=== PATIENT | female | born 1965 | race Caucasian/White ===

== ENCOUNTER 2018-05-18 08:06 | Day surgery (SDC) | payer BC ==
[2018-05-16 16:22] VITALS: BMI 37.8
--- NOTE | 2018-05-17 17:06 | P.HPOB ---
History of Present Illness H&P Date: 05/17/18 Chief Complaint: Postmenopausal bleeding Patient is a 52-year-old female who has postmenopausal bleeding. The bleeding has been irregular but as it is postmenopausal we'll plan D&C with hysteroscopy to rule out hyperplasia or dysplasia. Risks/benefits/alternatives were reviewed with the patient in detail all questions were answered for her prior to proceeding to the operating room. No other gross findings or abnormalities. Bleeding has been off-and-on for the last 6-9 months. She previously stopped having menses. Past Medical History Past Medical History: CVA/TIA, Hyperlipidemia, Hypertension, Neurologic Disorder Additional Past Medical History / Comment(s): VERY SLIGHT TIA. CHRONIC SINUSITIS. BLEEDING AFTER EXERCISE. MIGRAINES History of Any Multi-Drug Resistant Organisms: MRSA Date of last positivie culture/infection: 01/2018 MDRO Source:: UNDER NOSE ON FACE Past Surgical History: Cholecystectomy, Orthopedic Surgery, Tonsillectomy, Tubal Ligation Additional Past Surgical History / Comment(s): RT WRIST AND ELBOW SX. COLONOSCOPY/EGD Past Anesthesia/Blood Transfusion Reactions: Motion Sickness, Postoperative Nausea & Vomiting (PONV) Smoking Status: Never smoker - Past Family History Mother Family Medical History: No Reported History Medications and Allergies Home Medications Medication Instructions Recorded Confirmed Type Cholecalciferol (Vitamin D3) 2,000 unit PO DAILY 05/16/18 05/16/18 History [Vitamin D3] L.acidoph,Paracasei, B.lactis 1 each PO DAILY 05/16/18 05/16/18 History [Probiotic] Magnesium Chloride [Slow Mag] 64 mg PO DAILY 05/16/18 05/16/18 History Metoprolol Succinate [Toprol Xl] 50 mg PO HS 05/16/18 05/16/18 History Simvastatin [Zocor] 20 mg PO HS 05/16/18 05/16/18 History Vitamin B Complex 1 each PO DAILY 05/16/18 05/16/18 History amLODIPine [Norvasc] 5 mg PO DAILY 05/16/18 05/16/18 History Allergies Allergy/AdvReac Type Severity Reaction Status Date / Time cephalexin [From Keflex] AdvReac Diarrhea Verified 05/16/18 16:16 codeine AdvReac Nausea & Verified 05/16/18 16:16 Vomiting hydromorphone [From Dilaudid] AdvReac Nausea Verified 05/16/18 16:16 Opioids - Morphine Analogues AdvReac SEVERE Verified 05/16/18 16:16 BOWEL IMPACTION prochlorperazine AdvReac Nausea & Verified 05/16/18 16:16 [From Compazine] Vomiting raspberry AdvReac COLD SORES Verified 05/16/18 16:16 strawberry AdvReac COLD SORES Verified 05/16/18 16:16 sumatriptan [From Imitrex] AdvReac CAUSED Verified 05/16/18 16:16 VERY MINOR TIA tramadol AdvReac Nausea Verified 05/16/18 16:16 Exam Osteopathic Statement: *. No significant issues noted on an osteopathic structural exam other than those noted in the History and Physical/Consult. - OBG Physical Exam Breast: both: normal (no masses) Abdomen: bowel sounds normal, no diffuse tenderness, no bruit present, no guarding noted, no hepatomegaly, no splenomegaly, no mass Vulva: both: normal Vagina: normal moisture, no discharge Cervix: no lesion, no discharge Uterus: normal size, normal contour Adnexa: both: normal Anus/Rectum: normal perianal skin, no rectal mass, no hemorrhoids, heme negative
[~2018-05-18 08:06] MED LIST: DEXAMETHASONE SOD PHOSPHATE 10 MG/ML 1 ML VIAL IV ONE; HYDROmorphone 1 MG/ML 1 ML SYRINGE IVP PRN; LACTATED RINGERS 1,000 ML IV SCH; LIDOCAINE 1% 20 ML VIAL (10MG/ML) FOR IV START INTRADERMA PRN; MIDAZOLAM 2 MG/2 ML VIAL IV PRN; ONDANSETRON 4 MG/2 ML VIAL IVP ONE; SCOPOLAMINE 1.5MG/72HR PATCH TRANSDERM ONE
[2018-05-18] MEDS ORDERED: PROPOFOL 10 MG/ML 20 ML VIAL IV ONE (10:01)
[2018-05-18] MEDS ORDERED: KETOROLAC 30 MG/ML 1 ML VIAL ONE (10:01)
[2018-05-18] MEDS ORDERED: MIDAZOLAM 2 MG/2 ML VIAL ONE (10:01)
[2018-05-18] MEDS ORDERED: LIDOCAINE 1% INJ 10MG/ML (20 ML MDV) ONE (10:01)
--- NOTE | 2018-05-18 10:23 | P.OP ---
Date of Procedure: 05/18/18 Preoperative Diagnosis: Postmenopausal bleeding Postoperative Diagnosis: Same Procedure(s) Performed: Limited visualization due to the fact that she was bleeding today Anesthesia: DARCY LAGUNA Surgeon: Bruce Marina Estimated Blood Loss (ml): 3 Pathology: other (Uterine curettings) Condition: stable Disposition: same day Operative Findings: Tissue pathology pending Description of Procedure: Patient was taken to the operating suite where a general anesthetic was found be adequate. She was prepped and draped in the normal sterile fashion and placed in dorsal lithotomy position. Initially a speculum was inserted into the vagina and into lip cervix was identified and grasped with Allis clamp. Cervix was then dilated and camera was inserted. Minimal visualization was able to be obtained due to the fact that she wouldn't leave today. Therefore camera was removed and sharp curettings of the endometrium were obtained. Minimal tissue was actually obtained. Will await final tissue pathology. Once this was completed all instruments were removed. Sponge, lap, needle counts were all correct 2. Patient was then taken to the recovery room in stable and satisfactory condition. Plan - Discharge Summary New Discharge Prescriptions: No Action Magnesium Chloride [Slow Mag] 64 mg PO DAILY amLODIPine [Norvasc] 5 mg PO DAILY Vitamin B Complex 1 each PO DAILY Simvastatin [Zocor] 20 mg PO HS Metoprolol Succinate [Toprol Xl] 50 mg PO HS L.acidoph,Paracasei, B.lactis [Probiotic] 1 each PO DAILY Cholecalciferol (Vitamin D3) [Vitamin D3] 2,000 unit PO DAILY Discharge Medication List Cholecalciferol (Vitamin D3) [Vitamin D3] 2,000 unit PO DAILY 05/16/18 [History] L.acidoph,Paracasei, B.lactis [Probiotic] 1 each PO DAILY 05/16/18 [History] Magnesium Chloride [Slow Mag] 64 mg PO DAILY 05/16/18 [History] Metoprolol Succinate [Toprol Xl] 50 mg PO HS 05/16/18 [History] Simvastatin [Zocor] 20 mg PO HS 05/16/18 [History] Vitamin B Complex 1 each PO DAILY 05/16/18 [History] amLODIPine [Norvasc] 5 mg PO DAILY 05/16/18 [History] Follow up Appointment(s)/Referral(s): Bruce Marina DO [Doctor of Osteopathic Medicine] - 1 Week Activity/Diet/Wound Care/Special Instructions: pelvic rest this week. no heavy lifting today and no driving today. call for any high temps, heavy bleeding or severe pain
[2018-05-18] MEDS ORDERED: ONDANSETRON 4 MG/2 ML VIAL IVP ONE (10:39)
[2018-05-18 10:53] VITALS: TEMP 98.4
[2018-05-18] MEDS ORDERED: ACETAMINOPHEN IV (For NPO) 1,000 MG/100 ML VIAL IVPB ONE (10:55)
[2018-05-18 11:37] VITALS: RESP 16
[2018-05-18 11:46] VITALS: BP 145/89; PULSE 69
== END 2018-05-18 12:15 | disposition home or self-care (01) ==
LOC: OR 08:06
PROVIDERS: ATTEND Obstetrics & Gynecology
DX: N84.0 Polyp of corpus uteri (principal); N95.0 Postmenopausal bleeding; Z86.73 Personal history of transient ischemic attack (TIA), and cerebral infarction without residual deficits; E78.5 Hyperlipidemia, unspecified; I10 Essential (primary) hypertension; G43.909 Migraine, unspecified, not intractable, without status migrainosus; J32.9 Chronic sinusitis, unspecified; K21.9 Gastro-esophageal reflux disease without esophagitis; Z86.14 Personal history of Methicillin resistant Staphylococcus aureus infection; Z79.899 Other long term (current) drug therapy; Z88.5 Allergy status to narcotic agent; Z88.1 Allergy status to other antibiotic agents; Z88.8 Allergy status to other drugs, medicaments and biological substances; Z91.018 Allergy to other foods; Z98.51 Tubal ligation status
CPT/HCPCS: 81025; 88305; 58558; J2250; J1100; J2405; J2001; J1885; J0131; J2704

== ENCOUNTER → 2023-09-19 | Outpatient (CLI) | payer BC ==
--- NOTE | 2023-09-19 13:06 | XR ---
EXAMINATION TYPE: XR chest 2V DATE OF EXAM: 09/19/2023 COMPARISON: None HISTORY: 57-year-old female preoperative evaluation, Z01.818. TECHNIQUE: Frontal and lateral views FINDINGS: The cardiomediastinal silhouette, aorta, and pulmonary vasculature are within normal limits. Lungs an d pleural spaces are clear. IMPRESSION: No acute cardiopulmonary process.
[2023-09-19 15:49] LABS: Basophils # (A) 0.06 X 10*3/uL (0.00-0.10); Basophils % (A) 0.5 %; Eosinophils # (A) 0.62 X 10*3/uL (0.04-0.35); Eosinophils % (A) 5.1 %; HCT 44.6 % (37.2-46.3); HGB 15.4 g/dL (12.0-15.0); Lymphocytes # (A) 2.39 X 10*3/uL (0.90-5.00); Lymphocytes % (A) 19.5 %; MCH 33.6 pg (27.0-32.0); MCHC 34.5 g/dL (32.0-37.0); MCV 97.4 FL (80.0-97.0); Mean Platelet Volume 10.3 FL (9.5-12.2); Monocytes # (A) 0.89 X 10*3/uL (0.20-1.00); Monocytes % (A) 7.3 %; NRBC Per 100 WBC 0 X 10*3/uL (0.00-0.01); Neutrophils # (A) 8.19 X 10*3/uL (1.80-7.70); Neutrophils % (A) 66.7 %; Platelet Count 255 X 10*3/uL (140-440); RBC 4.58 X 10*6/uL (4.10-5.20); RDW 12.6 % (11.5-14.5); WBC 12.26 X 10*3/uL (4.50-10.00)
[2023-09-19 16:05] LABS: INR 0.93 sec (0.93-1.11); Prothrombin Time 10.1 sec (9.9-11.9)
[2023-09-19 16:23] LABS: ALT 31 U/L (8-44); AST 29 U/L (13-35); Albumin 4.3 g/dL (3.8-4.9); Albumin/Globulin Ratio 1.95 Ratio (1.60-3.17); Alkaline Phosphatase 76 U/L (41-126); Blood Urea Nitrogen 26.5 mg/dL (9.0-27.0); Calcium 9.8 mg/dL (8.7-10.3); Carbon Dioxide 19.6 mmol/L (21.6-31.8); Chloride 100 mmol/L (96-109); Globulin 2.2 g/dL (1.6-3.3); Glucose 98 mg/dL (70-110); Potassium 4.4 mmol/L (3.5-5.5); Sodium 136 mmol/L (135-145); Total Bilirubin 0.4 mg/dL (0.3-1.2); Total Protein 6.5 g/dL (6.2-8.2)
== END | disposition home or self-care (01) ==
LOC: LABPAT 11:49
PROVIDERS: ATTEND Orthopaedic Surgery
DX: Z01.812 Encounter for preprocedural laboratory examination (principal); I10 Essential (primary) hypertension; E11.65 Type 2 diabetes mellitus with hyperglycemia; D51.9 Vitamin B12 deficiency anemia, unspecified; E55.9 Vitamin D deficiency, unspecified; Z22.322 Carrier or suspected carrier of Methicillin resistant Staphylococcus aureus
CPT/HCPCS: 71046; 80053; 82306; 82607; 83036; 84443; 85025; 85610; 86850; 86900; 86901; 87070

== ENCOUNTER 2023-09-27 11:43 | Day surgery (SDC) | payer BC ==
[2023-09-22 14:24] VITALS: BMI 36.4
--- NOTE | 2023-09-25 18:47 | P.HPOR ---
History of Present Illness H&P Date: 09/14/23 .D:Date: 09/14/23 : 10:47am .T:Title: [facility]OVANNA [facility] HISTORY AND PHYSICAL Age: 57 year Height: 5'6" Weight: 220 lbs BMI: 35.51 kg/m2 Occupation: Factory, off work currently VAS: 4 CC: Re-check on low back pain HISTORY: Ms. Rivera presents to the office today, 09/14/23, for re-evaluation of low back pain. She has been working with Sharon Gil, Spine POULTRY PROCESS WORKER for a while now with conservative care including medications, PT, HEP, Supplementation and OTC treatments. She continues to have significant low back and leg pain that does not seem to be getting better with any of these treatments at this time. Patient denies any f/c/sob/cp, perineal numbness or tingling, bowel or bladder incontinence/retention. Patient is ambulatoryindependently today. The patients' past social, medical, family, surgical history, as well as review of systems, have been reviewed. Please refer to the Neurosurgery History and Physical form that has been scanned into our electronic medical record system. 16 points review of systems completed and as stated in HPI, all other systems reviewed are negative. PAST TREATMENTS: PT: No Did it help? n/a Home Exercise: Yes Medications: Completing a steroid naomi, Gabapentin, and Aleve Alternative Interventions: Chiropractic: No Massage therapy: Yes R.I.C.E: Yes Brace: No Injections: No MEDICAL HISTORY: Past Medical History: Reviewed, see appropriate section of the chart for details. Past Spine Surgical History: None Social History: Reviewed, see appropriate section of the chart for details. Family History: Reviewed, see appropriate section of the chart for details. Current Medications: Reviewed with pt. See list in chart. P1 IMAGING Study Findings XRAY REviewed with pt today in office. This demonstrates L5-S1 Grade I unstable spondylolisthesis with spondylosis and stenosis. There is severe facet arthrosis at this level as well as moderate at L4-5. There is retrolistheis of L4-5 and L3-4 related to compensatory change due to the listhesis. There are no fractures noted. Pars elongation b/l noted L5-S1. No lesions. CT N/A MRI Images reviewed with pt today. These demonstrate again L5-S1 spondylolisthesis Grade I, unstable which is partially reduced on this supine film. There is disc dessication, bulging and height loss which contribute to the central and b/l foraminal stenosis that is moderate to severe at this level. There is moderate central stenosis L4-5 and L3-4 with retrolisthesis at both of these levels. There are no lesions or fractures noted at this time. PHYSICAL EXAM: General: AOX3, NAD, Well hydrate, Well nourished HEENT: No lumps or masses Extremities: No color changes, no pooling INTEGUMENT: Appearance:Normal color and turgor Surgical Incisions: None Hairy Patches: ABSENT Dorsal Skin Dimples: Normal [employer] spots: ABSENT PALPATION: Midline: NO Paracervical: NO Parathoracic: NO Paralumbar: YES SIJ TESTING: YES TTP: Mild b/l [place] Finger: NO FABER4: NO Compression: NO Distraction: NO Thigh thrust: No Hip thrust: NO POSTURAL BALANCE: Coronal: BALANCED Sagittal: BALANCED Shoulder height: LEVEL Pelvic Girdle: LEVEL ROM AND APPEARANCE: Neck: UNRESTRICTED Lumbar: RESTRICTED Shoulders: Symmetrical Hips: Symmetrical Knees: Symmetrical Hands: Symmetrical Feet: Symmetrical VASCULAR STATUS: RUE- 2 LUE-2 RLE-2 LLE-2 Edema: NONE NEUROLOGICAL EXAMINATION: Mental Status: Awake, alert, oriented fully with normal attention, concentration and memory. Fluent appropriate speech. CRANIAL NERVES: I: Olfactory not tested. II: Visual acuity normal, no visual field deficit noted with confrontation. III,IV: Normal pupillary reflexes & intact extraocular movements without nystagmus. V,: Intact symmetrical facial sensation. VII: Intact symmetrical facial motor movementVIII: Hearing intact. IX,X: Intact gag, swallow, & normal voice. XI: Sternocleidomastoid, trapezius function intact. XII: Tongue midline with normal movements. TENSIONING: L'HERMITTE'S SIGN NEG SPURLUNG'S SIGN NEG CUBITAL COMPRESSION NEG TINELS AT WRIST NEG SLR/CROSSED SLR POS RIGHT MOTOR EXAM (0-5/5, NT) Muscle appearance: Symmetrical, without signs of atrophy or dystrophy UPPER EXTREMITY RIGHT LEFT Shoulder Abduction 5 5 Biceps 5 5 Triceps 5 5 Wrist Extension 5 5 Hand Intrnsics 5 5 Perfect Binder Feeder Offbearer 5 5 LOWER EXTREMITY RIGHT LEFT Hip Flexion 5 5 Knee Extension 5 5 Knee Flexion 5 5 Dorsiflexion 4+ 5 Plantarflexion 4+ 5 EHL 5 5 FHL 4+ 5 REFLEXES (0-4/2, NT): RIGHT LEFT Bicep 2 2 Brachioradialis 2 2 Tricep 2 2 Patellar 1 2 Achilles 1 2 PATHOLOGICAL REFLEXES: RIGHT LEFT KELLOGG'S ABSENT ABSENT CLONUS ABSENT ABSENT BABINSKI ABSENT ABSENT Rectal Tone: INTACT SENSATION (0-4, NT): RUE-2LUE-2 RLE-2 LLE-2 Dermatomal deficit: L3-S1 b/l, GAIT AND FUNCTIONAL EVALUATION: -Ambulatory aids- INDEPENDENT -Rombergs test- NEG -Hand and finger dexterity intact bilaterally? YES NO -Dysdiadochokinesia examination negative bilaterally? YES NO -Toe heel walk / heel-toe walk intact while maintaining satisfactory balance? NO -Squatting/straightening w/o assistance to a min of 60 degree knee flexion? NO -Single leg stance: nOT ABLE -Trendelenburg sign NT IMPRESSION: It was my pleasure to have seen and examined Erna. I reviewed the patient's clinical syndrome, physical findings, and imaging studies during the appointment today. It is my impression that the patient has a diagnosis of. 1. L5-S1 Grade I unstable spondylolisthesis with stenosis 2. Lumbar stenosis with radiculopathy 3. LE weakness 4. Low back pain PLAN: THERAPIES - -Cont with home exerciess and home PT excercises as able -Cont with Heat/Ice as warrented -Cont with supplementation Vit D, Vit C, Ca2+, High protein diet -OK for massage or other alternative treament modalities as able. If it exacerbates your sx do not continue ACTIVITY -As tolerated - RECOMMEND NO LIFTING BENDING TWISTING PUSHING PULLING GREATER THAN -30 -Recommend walking up to 30 min 2x daily on a flat easy surface with good support. MEDICATIONS -Cont current regiment -Take as directed - IMAGING -XR and MRI reviewed. -Pre op CT would be needed for pt should they elect for surgical treatment. INJECTIONS - SURGICAL RECOMMENDATION -L5-S1 decompression and fusion recommended for patient. Surgical Procedure Risk Review Erna Rivera is a 57 year old female presenting for evaluation of Low back pain. LE weakness, radiculopathy, unstable spine feeling as well as progressive symptoms. It was my pleasure to have seen and examined Ms. Rivera. In our visit today we have had a chance to go over subjective complaints, physical examination findings and treatments, including the natural course history without intervention and various interventional options. The imaging demonstrates L5-S1 spondylolisthesis, Grade I-II unstable with pars elongation, boggy facets severe foraminal b/l stenosis and central stenosis due to slip as well as b/l pars defects related to the slip. MRI shows stenotic features as well as severe disc dessication, height loss, modic changes and ligamental hypertrophy . On physical exam, Ms. Rivera demonstrates Neurogenic claudicaiton, LE weakness with radiculopathy, Severe low back pain that is progressive and worsening over time along with instability feeling in her low back with any motions now. Difficulty walking any distances at this time due to thigh and leg pain I explained to the patient that as her condition progresses it could cause Continued and progressive sx that will worsen over time and can lead to worsening neurological issues . At this time, based on the patients imaging and physical exam, I recommend surgery in the form or a: . I discussed the risk and benefits of this procedure at length with Ms. Rivera. The patient agreed to consider pursuing the procedure mentioned above. Plan: 1. L5-S1 posterolateral and interbody decompression and fusion 2. Follow up with PCP for surgical clearance 3. Review of surgical risks and benefits as well as an educational packet on the proposed surgical procedure. Risks: All surgical procedures come with inherent risks, including those related to positioning, anesthesia, intraoperative findings, and postoperative complications. It is important to understand that surgery does not come with any guarantee of a successful outcome as complications and adverse events are always possible. The patient was given a handout in office today discussing the surgical procedure and risks associated with the intervention, both of which were discussed with the patient. These risks include but are not limited to the following: ? Experiencing same, different or even worse symptoms in back, neck, arms, or legs compared to before surgery. ? Requiring further surgery or other forms of treatment presently or at some time in the future at same or other levels of the intended spine surgery. ? On an extreme but fortunately relatively rare basis severe complication such as blindness, stroke, heart attack, temporary and/or permanent nerve injury, paralysis, coma, or may occur, sometimes without known exp lanation. ? Surgical complications may include but are not limited to risk of infection, fluid accumulation in the surgical dissection site, including a seroma or hematoma, that requires additional surgery, wound drainage, bleeding, new numbness or weakness, vision changes/loss, spinal fluid leakage, non-healing and/or infected incision, headaches, difficulty or inability to swallow, hoarse ness, hemopneumothorax, pneumothorax, impotence, retrograde ejaculation, vaginal dryness; injury to nerves, spinal cord, blood vessels, lymphatics or other vital organs (i.e., bowel injury, injury to the great vessels); heterotopic bone formation; complications related to the hardware such as screws, rods, cages including misplaced hardware, device failure, instrumentation at the wrong spine level, hardware fracture/breakage, or hardware loosening; vertebral failure of the spinal column above or below the newly placed hardware; retained surgical instrumentations or devices and the need for further surgery. ? Medical risks of the planned spine surgery include but are not limited to generalized Infections to the whole body or local areas outside of the surgical site (sepsis), heart attack, bleeding, anaphylaxis, meningitis, seizure, epilepsy, hearing loss, burn blunt, laceration of the head or other areas of the body, bruising, hypersensitivity of the skin, bladder over distension; allergic reaction; shoulder injury related to positioning; fat, blood and air clots to other areas of the body like heart, lungs, brain; failure of internal organs such as lungs, kidneys, liver and excessive bleeding. If blood transfusions are necessary, note that transfusions may cause intolerance reactions such as anaphylaxis or other complex reactions. Despite best efforts, the results of spine surgery might not heal in terms of bone, soft tissues such as skin, fascia, ligaments, and joints. Additionally, in order to achieve best possible results, spine surgery may be carried out b eyond the initially planned levels and involve decompression, fusion including insertion of hardware at levels other than the original intended area of surgical interest change some portions of the procedure in order to ensure the best possible outcomes. With spine surgery and spinal fusion, there are different off label uses of instrumentation (devices, implants and hardware) as well as biological substances (bone morphogenic proteins, demineralized bone matrix) as well as using extra bone from allograft sources (i.e. cadaver bone) or autograft (iliac crest bone, ribs, or the spine itself). The patient has been given information about these practices and their inherent risks and benefits. Jovanna Shane Physician Assistants are medically trained surgical providers who function in the outpatient, inpatient, and operating room setting under the direct supervision of the attending surgeon.They assist in the operating room with direct supervision of the attending surgeons. The patient has had a chance to review all the listed information, has been given print outs detailing this information, and has had all his/her questions answered to their satisfaction. It was my pleasure to have seen and examined Ms. Rivera. In our visit today we have had a chance to go over my understanding of our patient's current condition, the natural course history without intervention and various interventional options. Questions were invited and answered, and the patient wishes to proceed as outlined above. I have seen and examined the patient for 25 minutes and we have spent more than 50% of the time in repeat and detailed counseling about the patient's condition, its natural course history with out and as much as can be predicted with surgery and re-review of various surgical treatment options. In conclusion,Ms. Rivera and her spouse/partner requested we proceed with the above suggested surgery and are willing to accept risks and limitations of the suggested surgery as nature of the disease process and our best attempts at treatment for the condition. Thank you again for allowing us to be part of your patient's care. Please don't hesitate to contact me if you have any further questions. DISCUSSION: -I have discussed the patients clinical signs and syptoms with them today as outline above and she understands and is willing to proceed with surgery. FOLLOW UP: POST OP PLAN AT NEXT VISIT: Post op Check with XRAY AP/LAT lumbar PATIENT EDUCATION: Medications Reviewed: YES In our visit today Ms. Rivera and I have had a chance to go over my understanding of the patient's current condition, the natural course history without intervention and various interventional options. Questions were invited and answered, and the patient wishes to proceed as outlined above. I will be sure to keep you updated after Ms. Rivera returns here for further follow-up. Thank you again for your referral. Please do not hesitate to contact me if you have any further questions. Signed and authenticated by: Tucker Chavez [facility] [address] [facility], [address] [address] This message is confidential, intended only for the named recipient(s) and may contain information that is privileged or exempt from disclosure under applicable law. If you are not the intended recipient(s), you are notified that the dissemination, distribution or copying of this information is strictly prohibited. If you received this message in error, please notify the sender then delete this message. # SIGNED BY Tucker Moe ([facility])09/18/2023 01:17PM # REVISED BY Tucker Moe ([facility])09/25/2023 06:47PM Past Medical History Past Medical History: CVA/TIA, Diabetes Mellitus, Hyperlipidemia, Hypertension, Musculoskeletal Disorder, Neurologic Disorder Additional Past Medical History / Comment(s): Borderline Diabetes. HX VERY SLIGHT TIA. CHRONIC SINUSITIS. MIGRAINES - Daith piercing left ear. Herniated disc, scoliosis, pinched nerves in back. History of Any Multi-Drug Resistant Organisms: MRSA Date of last positivie culture/infection: 01/2018 MDRO Source:: UNDER NOSE ON FACE Past Surgical History: Cholecystectomy, Joint Replacement, Orthopedic Surgery, Tonsillectomy, Tubal Ligation Additional Past Surgical History / Comment(s): RIGHT WRIST AND ELBOW SURGERY, COLONOSCOPY/EGD, total left knee replacement. Past Anesthesia/Blood Transfusion Reactions: Motion Sickness, Postoperative Nausea & Vomiting (PONV) Smoking Status: Never smoker - Past Family History Mother Family Medical History: No Reported History Medications and Allergies Home Medications Medication Instructions Recorded Confirmed Type Cholecalciferol (Vitamin D3) 2,000 unit PO QAM 05/16/18 09/22/23 History [Vitamin D3] Ascorbic Acid [Vitamin C] 1,000 mg PO QAM 09/22/23 09/22/23 History Cyclobenzaprine [Flexeril] 10 mg PO HS 09/22/23 09/22/23 History Desvenlafaxine [Pristiq ER] 200 mg PO HS 09/22/23 09/22/23 History Glycopyrrolate 1 mg PO BID 09/22/23 09/22/23 History Metoprolol Succinate [Metoprolol 25 mg PO BID 09/22/23 09/22/23 History Succinate ER] Valsartan 160 mg PO QAM 09/22/23 09/22/23 History buPROPion XL [Wellbutrin XL] 300 mg PO HS 09/22/23 09/22/23 History metFORMIN HCL 500 mg PO BID 09/22/23 09/22/23 History Allergies Allergy/AdvReac Type Severity Reaction Status Date / Time cephalexin [From Keflex] AdvReac Diarrhea Verified 09/22/23 14:15 clindamycin AdvReac Severe Verified 09/22/23 14:15 Migraine codeine AdvReac Nausea & Verified 09/22/23 14:15 Vomiting hydromorphone [From Dilaudid] AdvReac Nausea Verified 09/22/23 14:15 Opioids - Morphine Analogues AdvReac SEVERE Verified 09/22/23 14:15 BOWEL IMPACTION prochlorperazine AdvReac Nausea & Verified 09/22/23 14:15 [From Compazine] Vomiting raspberry AdvReac COLD SORES Verified 09/22/23 14:15 strawberry AdvReac COLD SORES Verified 09/22/23 14:15 sumatriptan [From Imitrex] AdvReac CAUSED Verified 09/22/23 14:15 VERY MINOR TIA tramadol AdvReac Nausea Verified 09/22/23 14:15 Physical Examination Osteopathic Statement: *. No significant issues noted on an osteopathic structural exam other than those noted in the History and Physical/Consult.
--- NOTE | 2023-09-27 09:40 | P.HPOR ---
History of Present Illness H&P Date: 09/27/23 Spine Surgery Clinical and Risk Review Erna Rivera is a 57-year-old femalepresenting for evaluation of mid-low back pain and bilateral lower extremity weakness with radiculopathy and thigh pain. It was my pleasure to have seen and examined Erna Rivera . In our visit today we have had a chance to go over subjective complaints, physical examination findings and treatments including the natural course history without intervention and various interventional options. The patients imaging demonstrates L2-L3 demonstrates herniated nucleus pulposus with disc extrusion causing central and bilateral foraminal stenosis was moderate to severe. There is also grade 1 anterolisthesis of L5 on S1 which is unstable. There are no acute fractures or other dislocations noted at this time. . On physical exam, Erna Rivera demonstrates Bilateral lower extremity radiculopathy with weakness neurogenic claudication-like symptoms. Pain with mobility in the mid to low back. Tenderness to palpation around the area. 45 strength in hip flexion bilaterally neurovascular intact otherwise I have explained to the patient that as their condition progresses it will cause further neurological deficits and eventual paralysis. Based on the patients imaging, physical exam, and the rapid progression and disabling nature of their symptoms, at this time I recommend surgery in the form or a: L2-3 laminectomy decompression. I discussed the risk and benefits of this procedure at length with Erna Rivera The patient agreed to considered pursuing the procedure abovementioned. Prior to surgery, she should follow up with her PCP (Cardio, ID, IM etc) for clearance. Questions were invited and answered, and the patient wishes to proceed as outlined below. Currently, I am recommendin. L2-L3 a compressive laminectomy 2. Follow up with PCP for surgical clearance 3. Review of surgical risks and benefits as well as an educational packet on the proposed surgical procedure. Risks: All surgical procedures come with inherent risks, including those related to positioning, anesthesia, intraoperative findings, and postoperative complications. It is important to understand that surgery does not come with any guarantee of a successful outcome as complications and adverse events are always possible. The patient was given a handout in office today discussing the surgical procedure and risks associated with the intervention, both of which were discussed with the patient. These risks include but are not limited to the following: * Experiencing same, different or even worse symptoms in back, neck, arms, or legs compared to before surgery. * Requiring further surgery or other forms of treatment presently or at some time in the future at same or other levels of the intended spine surgery. * On an extreme but fortunately relatively rare basis severe complication such as blindness, stroke, heart attack, temporary and/or permanent nerve injury, paralysis, coma, or may occur, sometimes without known explanation. * Surgical complications may include but are not limited to risk of infection, fluid accumulation in the surgical dissection site, including a seroma or hematoma, that requires additional surgery, wound drainage, bleeding, new numbness or weakness, vision changes/loss, spinal fluid leakage, non-healing and/or infected incision, headaches, difficulty or inability to swallow, hoarseness, hemopneumothorax, pneumothorax, impotence, retrograde ejaculation, vaginal dryness; injury to nerves, spinal cord, blood vessels, lymphatics or other vital organs (i.e., bowel injury, injury to the great vessels); heterotopic bone formation; complications related to the hardware such as screws, rods, cages including misplaced hardware, device failure, instrumentation at the wrong spine level, hardware fracture/breakage, or hardware loosening; vertebral failure of the spinal column above or below the newly placed hardware; retained surgical instrumentations or devices and the need for further surgery. * Medical risks of the planned spine surgery include but are not limited to generalized Infections to the whole body or local areas outside of the surgical site (sepsis), heart attack, bleeding, anaphylaxis, meningitis, seizure, epilepsy, hearing loss, burn blunt, laceration of the head or other areas of the body, bruising, hypersensitivity of the skin, bladder over distension; allergic reaction; shoulder injury related to positioning; fat, blood and air clots to other areas of the body like heart, lungs, brain; failure of internal organs such as lungs, kidneys, liver and excessive bleeding. If blood transfusions are necessary, note that transfusions may cause intolerance reactions such as anaphylaxis or other complex reactions. * Despite best efforts, the results of spine surgery might not heal in terms of bone, soft tissues such as skin, fascia, ligaments, and joints. Additionally, in order to achieve best possible results, spine surgery may be carried out beyond the initially planned levels and involve decompression, fusion including insertion of hardware at levels other than the original intended area of surgical interest change some portions of the procedure in order to ensure the best possible outcomes. * With spine surgery and spinal fusion, there are different off label uses of instrumentation (devices, implants and hardware) as well as biological substances (bone morphogenic proteins, demineralized bone matrix) as well as using extra bone from allograft sources (i.e. cadaver bone) or autograft (iliac crest bone, ribs, or the spine itself). The patient has been given information about these practices and their inherent risks and benefits. The patient has had a chance to review all the listed information, has been gi prabhakar print outs detailing this information, and has had all his/her questions answered to their satisfaction. The patient does have issues at L5-S1 with a grade 1 anterolisthesis L5-S1 which is unstable. We discussed that this may be a possible future surgery as well however due to her symptoms of thigh pain and weakness is more likely that the L2-L3 is causing her her symptoms at this time. Should she continue to have issues however L5-S1 would need to be addressed and she understands this. We will start with L2-L3 and the form of a laminectomy decompression and if needed in the future review L5-S1 MIS to eventually understands this and is comfortable. She would like to proceed with the smaller laminectomy surgery first. It was my pleasure to have seen and examined Erna Rivera In our visit today we have had a chance to go over my understanding of our patient's current condition, the natural course history without intervention and various interventional options. Questions were invited and answered, and the patient wishes to proceed as outlined above. I have seen and examined the patient for 25 minutes and we have spent more than 50% of the time in repeat and detailed counseling about the patient's condition, its natural course history with out and as much as can be predicted with surgery and re-review of various surgical treatment options. In conclusion, Erna Rivera and requested we proceed with the above suggested surgery and are willing to accept risks and limitations of the suggested surgery as nature of the disease process and our best attempts at treatment for the condition. Thank you again for allowing us to be part of your patient's care. Please don't hesitate to contact me if you have any further questions. Signed and authenticated by: Tucker Chavez [facility] [address] [facility], [address] [address] Past Medical History Past Medical History: CVA/TIA, Diabetes Mellitus, Hyperlipidemia, Hypertension, Musculoskeletal Disorder, Neurologic Disorder Additional Past Medical History / Comment(s): Borderline Diabetes. HX VERY SLIGHT TIA. CHRONIC SINUSITIS. MIGRAINES - Daith piercing left ear. Herniated disc, scoliosis, pinched nerves in back. History of Any Multi-Drug Resistant Organisms: MRSA Date of last positivie culture/infection: 01/2018 MDRO Source:: UNDER NOSE ON FACE Past Surgical History: Cholecystectomy, Joint Replacement, Orthopedic Surgery, Tonsillectomy, Tubal Ligation Additional Past Surgical History / Comment(s): RIGHT WRIST AND ELBOW SURGERY, COLONOSCOPY/EGD, total left knee replacement. Past Anesthesia/Blood Transfusion Reactions: Motion Sickness, Postoperative Nausea & Vomiting (PONV) Smoking Status: Never smoker - Past Family History Mother Family Medical History: No Reported History Medications and Allergies Home Medications Medication Instructions Recorded Confirmed Type Cholecalciferol (Vitamin D3) 2,000 unit PO QAM 05/16/18 09/22/23 History [Vitamin D3] Ascorbic Acid [Vitamin C] 1,000 mg PO QAM 09/22/23 09/22/23 History Cyclobenzaprine [Flexeril] 10 mg PO HS 09/22/23 09/22/23 History Desvenlafaxine [Pristiq ER] 200 mg PO HS 09/22/23 09/22/23 History Glycopyrrolate 1 mg PO BID 09/22/23 09/22/23 History Metoprolol Succinate [Metoprolol 25 mg PO BID 09/22/23 09/22/23 History Succinate ER] Valsartan 160 mg PO QAM 09/22/23 09/22/23 History buPROPion XL [Wellbutrin XL] 300 mg PO HS 09/22/23 09/22/23 History metFORMIN HCL 500 mg PO BID 09/22/23 09/22/23 History Allergies Allergy/AdvReac Type Severity Reaction Status Date / Time cephalexin [From Keflex] AdvReac Diarrhea Verified 09/22/23 14:15 clindamycin AdvReac Severe Verified 09/22/23 14:15 Migraine codeine AdvReac Nausea & Verified 09/22/23 14:15 Vomiting hydromorphone [From Dilaudid] AdvReac Nausea Verified 09/22/23 14:15 Opioids - Morphine Analogues AdvReac SEVERE Verified 09/22/23 14:15 BOWEL IMPACTION prochlorperazine AdvReac Nausea & Verified 09/22/23 14:15 [From Compazine] Vomiting raspberry AdvReac COLD SORES Verified 09/22/23 14:15 strawberry AdvReac COLD SORES Verified 09/22/23 14:15 sumatriptan [From Imitrex] AdvReac CAUSED Verified 09/22/23 14:15 VERY MINOR TIA tramadol AdvReac Nausea Verified 09/22/23 14:15 Physical Examination Osteopathic Statement: *. No significant issues noted on an osteopathic structural exam other than those noted in the History and Physical/Consult.
[~2023-09-27 11:43] MED LIST changes: -DEXAMETHASONE SOD PHOSPHATE 10 MG/ML 1 ML VIAL IV ONE; -HYDROmorphone 1 MG/ML 1 ML SYRINGE IVP PRN; -LACTATED RINGERS 1,000 ML IV SCH; -LIDOCAINE 1% 20 ML VIAL (10MG/ML) FOR IV START INTRADERMA PRN; -ONDANSETRON 4 MG/2 ML VIAL IVP ONE; -SCOPOLAMINE 1.5MG/72HR PATCH TRANSDERM ONE; +TRANEXAMIC 1,000 MG/100ML-NACL 1,000 MG in SALINE 1 100ML.BAG IVPB PRN
[2023-09-27] MEDS: ACETAMINOPHEN TAB 500 MG TAB PO PRN (12:30)
[2023-09-27] MEDS: GABAPENTIN 300 MG CAP PO PRN (12:30)
[2023-09-27] MEDS: LACTATED RINGERS 1,000 ML IV SCH (12:45)
[2023-09-27] MEDS: LIDOCAINE 1% (10MG/ML) FOR IV START INTRADERMA PRN (12:45)
[2023-09-27] MEDS: SCOPOLAMINE 1 MG/72 HR PATCH TRANSDERM ONE (13:00)
[2023-09-27] MEDS: DEXAMETHASONE SOD PHOSPHATE 4 MG/ML 1 ML VIAL IV ONE (13:00)
[2023-09-27] MEDS: ONDANSETRON 4 MG/2 ML VIAL IVP PRN (13:00)
[2023-09-27 13:08] LABS: Glucose,Whole Blood 113 mg/dL (70-110)
[2023-09-27] MEDS ORDERED: diphenhydrAMINE 50 MG/ML 1 ML VIAL ONE (15:36)
[2023-09-27] MEDS ORDERED: TRANEXAMIC 1,000 MG/100ML-NACL PREMIX BAG ONE (15:36)
[2023-09-27] MEDS ORDERED: NEOSTIGMINE 1 MG/ML 10 ML VIAL ONE (15:36)
[2023-09-27] MEDS ORDERED: KETAMINE HCL IN 0.9 % NACL 50 MG/5 ML SYRINGE ONE (15:36)
[2023-09-27] MEDS ORDERED: ROCURONIUM 10 MG/ML (5 ML VIAL) IV ONE (15:36)
[2023-09-27] MEDS ORDERED: fentaNYL (PF) 50 MCG/ML 2 ML AMP ONE (15:36)
[2023-09-27] MEDS ORDERED: PHENYLEPHRINE-0.9% NACL SYG 1,000 MCG/10 ML SYRINGE ONE (15:36)
[2023-09-27] MEDS ORDERED: GLYCOPYRROLATE 0.2 MG/ML 2 ML VIAL ONE (15:36)
[2023-09-27] MEDS ORDERED: PROPOFOL 10 MG/ML 20 ML VIAL IV ONE (15:36)
[2023-09-27] MEDS ORDERED: LIDOCAINE 1% INJ 10MG/ML (20 ML MDV) ONE (15:36)
[2023-09-27] MEDS ORDERED: SUCCINYLCHOLINE CHLORIDE 200 MG/10 ML VIAL IV ONE (15:36)
[2023-09-27] MEDS ORDERED: MIDAZOLAM 2 MG/2 ML VIAL ONE (15:36)
[2023-09-27] MEDS: ceFAZolin 3,000 MG in SODIUM CHLORIDE 0.9% IRRIGATIO 3,000 ML IRRIGATION ONE (16:15)
[2023-09-27] MEDS: THROMBIN (BOVINE) 5,000 UNIT VIAL TOPICAL ONE (16:15)
[2023-09-27] MEDS: GENTAMICIN 80 MG in SODIUM CHLORIDE 0.9% IRRIGATIO 3,000 ML IRRIGATION ONE (16:15)
[2023-09-27] MEDS: LACTATED RINGERS 1,000 ML IV ONE (16:29)
[2023-09-27] MEDS: VANCOMYCIN 1,000 MG VIAL MISCELLANE ONE (17:34)
--- NOTE | 2023-09-27 17:57 | P.OP ---
Date of Procedure: 09/27/23 Preoperative Diagnosis: 1. L2-3 AND L3-4 SEVERE STENOSIS WITH RADICULOPATHY 2. L2-4 SPONDYLOSIS 3. LOW BACK PAIN 4. LE WEAKNESS Postoperative Diagnosis: 1. L2-3 AND L3-4 SEVERE STENOSIS WITH RADICULOPATHY 2. L2-4 SPONDYLOSIS 3. LOW BACK PAIN 4. LE WEAKNESS Procedure(s) Performed: 1. L2-3, L3-4 BILATERAL LAMINECTOMY, PARTIAL MEDIAL FACETECTOMY AND FORAMINOTOMY Implants: NONE Anesthesia: GETA Surgeon: Tucker Moe Floral Clerk #1: Sharon Gil (Sharon Gil, PLATING AND POINT [employer]SEMBLY SUPERVISOR Was present and assisted with all aspects of the case from positioning to dressing placement) Estimated Blood Loss (ml): 150 IV fluids (ml): 1,100 Urine output (ml): 220 Pathology: none sent Condition: stable Disposition: PACU Indications for Procedure: Erna Rivera is a 57-year-old femalepresenting for evaluation of mid-low back pain and bilateral lower extremity weakness with radiculopathy and thigh pain. It was my pleasure to have seen and examined Erna Rivera . In our visit today we have had a chance to go over subjective complaints, physical examination findings and treatments including the natural course history without intervention and various interventional options. The patients imaging demonstrates L2-L3 demonstrates herniated nucleus pulposus with disc extrusion causing central and bilateral foraminal stenosis was moderate to severe. There is also grade 1 anterolisthesis of L5 on S1 which is unstable. There are no acute fractures or other dislocations noted at this time. . On physical exam, Erna Rivera demonstrates Bilateral lower extremity radiculopathy with weakness neurogenic claudication-like symptoms. Pain with mobility in the mid to low back. Tenderness to palpation around the area. 45 strength in hip flexion bilaterally neurovascular intact otherwise I have explained to the patient that as their condition progresses it will cause further neurological deficits and eventual paralysis. Based on the patients imaging, physical exam, and the rapid progression and disabling nature of their symptoms, at this time I recommend surgery in the form or a: L2-3 laminectomy decompression. I discussed the risk and benefits of this procedure at length with Erna Rivera The patient agreed to considered pursuing the procedure abovementioned. Prior to surgery, she should follow up with her PCP (Cardio, ID, IM etc) for clearance. Questions were invited and answered, and the patient wishes to proceed as outlined below. Currently, I am recommendin. L2-L3 a compressive laminectomy Description of Procedure: L2-L4 Open laminectomy The patient was seen and examined in the preoperative area. All preoperative protocols were followed. Informed consent was obtained, risks and benefits of the procedure were discussed at length. Risks including bleeding infection damage to the surrounding tissue and risk of reoperation were discussed with the patient. Risk of anesthesia up to and including was discussed with the patient. These are outlined in the risk review. They were willing to accept these risks and all of the risks of surgery. The patient was given a weight- based dose of antibiotics in the form of [Ancef]. The patient was seen and evaluated by the anesthesia team who deemed them fit for surgery. The site was marked, the patient was willing to proceed with the procedure. The patient was transferred to the operative suite by the Department of anesthesia. They were then drifted off to sleep by the department anesthesia and [GETA] was performed. The patient tolerated this well. [Rockwell catheter was placed by nursing staff, atraumatically]. Once confirmation of lines and ventilation the patient was transferred to a [prone Delon table very carefully]. All bony prominences including wrists, elbows, axilla, chest, hips, and thighs, and feet were padded very well. Special attention was paid to the genitalia and these were padded accordingly. SCDs were placed on bilateral lower extremities and were connected. Arms were well padded and placed [on arm boards up and out in the 90/90 position]. Once in position, again we confirmed good ventilation capabilities and that lines were running appropriately. The patient's [Lumbar] spine was then exposed. 1010s were placed outlining the incision site. Standard alcohol was used to clean the incision site and allowed to dry. C-arm was used to biomark the patient and confirm level for incision which was marked with a skin marker. Operative briefing was performed with all teams and everyone in agreement to proceed. The patient was then prepped and draped in a normal sterile fashion. Timeout was then performed and all parties were in agreement with the procedure to be performed. Midline skin incision made and subperiosteal dissection taken down over the lamina of L2-4 Facet joints located and protected. Camas 4 was placed at the pars of L3-4 to tonie a lateral image taken to confirm levels for operation. Bilateral laminectomy, partial medial facetectomy and foraminotomies were then performed at L2-4 using high speed isaac, 2-0 upbiting curette, 6-0 kerrison and 4-0 kerrison rongeurs. Ligamentum was removed. Deep facet joints capsule was removed along with cysts that were found deep from the facets. Foraminotomies done with kerrison and checked with a El ball probe. The patient had exuberant scar tissue and ligamental tissue causing severe stenotic features as well as scar from the disc herniation at L3-4 noted on the left side. This was removed and nerves-compressed in this area. Once decompression completed, meticulous hemostasis was done with floseal, paddies and gel foam. The wound bed was then irrigated with 6 L Abx Anfect and Gen followed by 6L NSS. The wound was inspected. Good decompression noted with no injury. X Rays were taken AP and lateral with markers to tonie the decompression. Surgicel was placed on the dura. 2g Vanco powder placed in the wound. Deep drain placed due to oozing. Wound bed was dry on closure. We then proceeded with closure. #1 PDS placed in the facia. 0 Vicryl placed in the deep subq and 2-0 in the superficial. Patterson placed in the skin. Wound edges approximated very well. The wound was then cleaned and dressed sterilly with adaptic, 4x4, abd dressing, sponge and Foam tape The patient was transferred back to their hospital bed atraumatically. Patient was then awakened and extubated by the department of anesthesia having tolerated the procedure very well with no complications. They were transferred to the postoperative care unit in stable condition.
[2023-09-27] MEDS ORDERED: MAGNESIUM HYDROXIDE 2,400 MG/30 ML CUP PO PRN (18:10)
[2023-09-27] MEDS ORDERED: CYCLOBENZAPRINE 5 MG TAB PO PRN (18:10)
[2023-09-27] MEDS ORDERED: MORPHINE SULFATE 2 MG/ML SYRINGE IVP PRN (18:10)
[2023-09-27] MEDS ORDERED: MORPHINE SULFATE 4 MG/ML SYRINGE IVP PRN (18:10)
[2023-09-27] MEDS ORDERED: bisacodyL 10 MG SUPP RECTAL PRN (18:10)
[2023-09-27] MEDS ORDERED: traMADol 50 MG TAB PO PRN (18:13)
[2023-09-27] MEDS ORDERED: oxyCODONE-APAP 5-325MG 1 EACH TAB PO PRN (18:14)
[2023-09-27] MEDS: fentaNYL (PF) 50 MCG/ML 2 ML AMP IVP ONE ×2 (18:44→19:16)
[2023-09-27] MEDS: ONDANSETRON 4 MG/2 ML VIAL IVP ONE ×2 (19:11→20:59)
[2023-09-27 19:29] LABS: Glucose,Whole Blood 168 mg/dL (70-110)
[2023-09-28] MEDS: HYDROcodone/APAP 10-325MG 1 EACH TAB PO PRN (00:28)
[2023-09-28 05:44] LABS: Glucose,Whole Blood 117 mg/dL (70-110)
[2023-09-28 06:38] LABS: African American GFR (CKD) >90 (>60 ml/min/1.73 sqM); Anion Gap 4 mmol/L; Blood Urea Nitrogen 16 mg/dL (7-17); Calcium 8.6 mg/dL (8.4-10.2); Carbon Dioxide 27 mmol/L (22-30); Chloride 106 mmol/L (98-107); Glucose 122 mg/dL (74-99); Non-African American GFR(CKD) 84 (>60 ml/min/1.73 sqM); Potassium 4.3 mmol/L (3.5-5.1); Sodium 137 mmol/L (137-145)
[2023-09-28 06:58] LABS: Basophils % (A) 0 %; Eosinophils # (A) 0.1 k/uL (0-0.7); Eosinophils % (A) 1 %; HCT 37.5 % (34.0-46.0); HGB 13.1 gm/dL (11.4-16.0); Lymphocytes # (A) 1.4 k/uL (1.0-4.8); Lymphocytes % (A) 15 %; MCH 33.8 pg (25.0-35.0); MCHC 34.8 g/dL (31.0-37.0); MCV 97.1 fL (80.0-100.0); Mean Platelet Volume 7.9; Monocytes # (A) 0.5 k/uL (0-1.0); Monocytes % (A) 6 %; Neutrophils # (A) 7.5 k/uL (1.3-7.7); Neutrophils % (A) 77 %; Platelet Count 278 k/uL (150-450); RBC 3.86 m/uL (3.80-5.40); RDW 13.2 % (11.5-15.5); WBC 9.7 k/uL (3.8-10.6)
[2023-09-28 07:27] VITALS: BP 125/81; PULSE 89; RESP 16; TEMP 97.5
--- NOTE | 2023-09-28 08:01 | P.CONS ---
History of Present Illness - Reason for Consult Consult date: 09/28/23 Medical management Requesting physician: Tucker Moe - Chief Complaint Severe lower back pain post L2-L3 compression laminectomy. - History of Present Illness HISTORY OF PRESENT ILLNESS: 57-year-old PATIENT with active medical history of chronic lower back pain, type 2 diabetes, hypertension, hyperlipidemia, chronic neuropathy, previous history of TIA, who has been having severe lower back pain for over a year with bilateral lower extremity weakness and numbness going into the lower part of her body. She had tried conservative management pain management which had helped to some degree only. Her MRI of the lumbar spine apparently showed L2-L3 compression severe stenosis with radiculopathy. Patient apparently had seen Dr. Moe recommended L2/L3 laminectomy and decompression. Surgery was done yesterday successfully patient was admitted to the floor afterward resume her home meds continue to have slightly pain otherwise hemodynamically stable. REVIEW OF SYSTEMS: CONSTITUTIONAL: Well-developed no acute respiratory distress. EYES: No icterus sclerae, no conjunctivitis. EARS, NOSE, MOUTH, THROAT, and FACE: No sore throat, lymphadenopathy, carotid bruits or deformity. RESPIRATORY: No SOB cough or wheezes. CARDIOVASCULAR: No CP, Palpitation, PND, Orthopnea, or angina. GASTROINTESTINAL: No Abd pain, Nausea or vomiting, no Diarrhea or constipation, No GI Bleed, no distention or masses. GENITOURINARY: Negative for Hematuria or UTI, no kidney stones. INTEGUMENT/BREAST: Negative for any muscular injury with mild osteoarthritis.. HEMATOLOGIC/LYMPHATIC: Negative for bleed or purpura. MUSCULOSKELTAL: Negative for Myalgia or arthralgia. NEURLOGICAL: No LOC, Sz or syncope, blurred vision dizziness or abnormality.. BEHAVIORAL/PSYCH: Negative. ENDOCRINE: Negative. PHYSICAL EXAMINATION: General Appearance: Alert, cooperative, no distress, appears stated age. Neck HEENT: Supple, no lymphadenopathy, no thyroid enlargement, no carotid bruits. Lungs: Clear to auscultation without crackles or wheezes no rhonchi, no deformity. Chest Wall: Chest wall normal expansion with deep inspiration no tenderness and no deformity was found on exam, no costochondral pain or discomfort. Heart: Regular rate and rhythm, S1, S2 normal, no murmur, rub or gallop. Back: Symmetric, no curvature, ROM normal, no CVA tenderness. Abdomen: Soft, non-tender, bowel sounds active all four quadrants, no masses, no organomegaly. Extremities: Extremities normal, atraumatic, no cyanosis or edema. Pulses: 2+ and symmetric. Skin: Skin color, texture, tugor normal, no rashes or lesions. Neurologic: Alert oriented x3 cranial nerves II through XII intact, no motor deficit, no abnormal balance or gait. ASSESSMENT AND PLAN: _Post lumbar spine decompression laminectomy: Patient admitted to the hospital overnight, pain is well-controlled, hemodynamically stable, her incision looks good with drainage tube on will be pulled out by orthopedic service today, she will be going home on gabapentin 300 mg 3 times a day and hydrocodone 10/325 mg every 4-6 hours as needed. _Type 2 diabetes: Resume metformin, Accu-Cheks status post coverage of event. _Hypotension: Has been doing well on combination of metoprolol succinate 25 mg twice a day along with valsartan 160 mg daily. Blood pressure is well- controlled. _Chronic neuropathy: Still on gabapentin 300 mg 3 times a day doing well. _Chronic depression: Continue Wellbutrin XL 200 mg nightly And Pristiq 200 mg daily. _GI prophylaxis: Will be on Pepcid 20 mg a day. _DVT prophylaxis: Early mobilization knee-high DESTINY hose. _CODE STATUS: Full code. Dr. Moe thank very much for the consult more than happy to see this patient along with you in the hospital if I can be any further help. Please let me know. The patient was seen with your nurse practitioner this morning incision looks clean doing well, patient is having less pain in her groin and thigh area with slight stronger muscle tone. She will be discharged home today. Past Medical History Past Medical History: CVA/TIA, Diabetes Mellitus, Hyperlipidemia, Hypertension, Musculoskeletal Disorder, Neurologic Disorder Additional Past Medical History / Comment(s): Borderline Diabetes. HX VERY SLIGHT TIA. CHRONIC SINUSITIS. MIGRAINES - Daith piercing left ear. Herniated disc, scoliosis, pinched nerves in back. History of Any Multi-Drug Resistant Organisms: MRSA Year Discovered:: 01/2018 MDRO Source:: UNDER NOSE ON FACE Past Surgical History: Cholecystectomy, Joint Replacement, Orthopedic Surgery, Tonsillectomy, Tubal Ligation Additional Past Surgical History / Comment(s): RIGHT WRIST AND ELBOW SURGERY, COLONOSCOPY/EGD, total left knee replacement. Past Anesthesia/Blood Transfusion Reactions: Motion Sickness, Postoperative Nausea & Vomiting (PONV) Past Psychological History: Depression Smoking Status: Never smoker Past Alcohol Use History: None Reported Past Drug Use History: None Reported - Past Family History Mother Family Medical History: No Reported History Medications and Allergies Home Medications Medication Instructions Recorded Confirmed Type Cholecalciferol (Vitamin D3) 2,000 unit PO QAM 05/16/18 09/22/23 History [Vitamin D3] Ascorbic Acid [Vitamin C] 1,000 mg PO QAM 09/22/23 09/22/23 History Cyclobenzaprine [Flexeril] 10 mg PO HS 09/22/23 09/22/23 History Desvenlafaxine [Pristiq ER] 200 mg PO HS 09/22/23 09/22/23 History Glycopyrrolate 1 mg PO BID 09/22/23 09/22/23 History Metoprolol Succinate [Metoprolol 25 mg PO BID 09/22/23 09/22/23 History Succinate ER] Valsartan 160 mg PO QAM 09/22/23 09/22/23 History buPROPion XL [Wellbutrin XL] 300 mg PO HS 09/22/23 09/22/23 History metFORMIN HCL 500 mg PO BID 09/22/23 09/22/23 History Cyclobenzaprine [Flexeril] 10 mg PO TID PRN #40 tab 09/27/23 Rx Gabapentin 300 mg PO TID #90 cap 09/27/23 Rx HYDROcodone/APAP 10-325MG [[place] 1 tab PO Q4HR PRN 7 Days #42 tab 09/27/23 Rx 10-325] cefaDROXiL [Duricef] 500 mg PO Q12HR 3 Days #6 cap 09/27/23 Rx Allergies Allergy/AdvReac Type Severity Reaction Status Date / Time cephalexin [From Keflex] AdvReac Diarrhea Verified 09/27/23 12:17 clindamycin AdvReac Severe Verified 09/27/23 12:17 Migraine codeine AdvReac Nausea & Verified 09/27/23 12:17 Vomiting hydromorphone [From Dilaudid] AdvReac Nausea Verified 09/27/23 12:17 prochlorperazine AdvReac Nausea & Verified 09/27/23 12:17 [From Compazine] Vomiting raspberry AdvReac COLD SORES Verified 09/27/23 12:17 strawberry AdvReac COLD SORES Verified 09/27/23 12:17 sumatriptan [From Imitrex] AdvReac CAUSED Verified 09/27/23 12:17 VERY MINOR TIA tramadol AdvReac Nausea Verified 09/27/23 12:17 Physical Exam Vitals: Vital Signs Temp Pulse Resp BP Pulse Ox 09/28/23 00:30 98.1 F 87 18 149/81 96 09/27/23 19:47 84 16 149/72 94 L 09/27/23 19:32 86 16 144/64 95 09/27/23 19:17 87 16 165/80 97 09/27/23 19:06 85 16 160/79 99 09/27/23 18:51 85 16 145/75 98 09/27/23 18:50 88 L 09/27/23 18:36 85 16 168/75 98 09/27/23 18:16 99.0 F 16 166/74 97 09/27/23 14:53 81 16 132/61 98 09/27/23 12:32 97.6 F 74 16 131/70 97 Intake and Output 09/27/23 09/27/23 09/28/23 14:59 22:59 06:59 Intake Total 1052 Output Total 150 Balance 902 Intake: IV 1052 Output: Estimated Blood Loss 150 Other: # Voids 1 Weight 101.4 kg 101.4 kg Results CBC & Chem 7: 09/28/23 04:20 09/28/23 04:20 Labs: Abnormal Lab Results - Last 24 Hours (Table) 09/27/23 09/27/23 09/28/23 Range/Units 12:52 19:28 05:42 POC Glucose (mg/dL) 113 H 168 H 117 H (70-110) mg/dL
[2023-09-28] MEDS: VALSARTAN 160 MG TAB PO SCH (09:02)
[2023-09-28] MEDS: GLYCOPYRROLATE 1 MG TAB PO SCH (09:02)
[2023-09-28] MEDS: metFORMIN 500 MG TAB PO SCH (09:02)
[2023-09-28] MEDS: CHOLECALCIFEROL 25 MCG (1000 IU) TABLET PO SCH (09:02)
[2023-09-28] MEDS: SENNOSIDES-DOCUSATE SODIUM 1 EACH TAB PO SCH (09:03)
[2023-09-28] MEDS: METOPROLOL SUCCINATE (ER) 25 MG TAB.ER.24H PO SCH (09:03)
[2023-09-28] MEDS: ASCORBIC ACID 500 MG TAB PO SCH (09:03)
--- NOTE | 2023-09-28 10:12 | P.DS ---
Providers Date of admission: 09/27/23 Expected date of discharge: 09/28/23 Attending physician: Tucker Moe DO Consults: 09/27/23 18:15 Consult Physician Routine Consulting Provider: Eleazar Galvan Reason/Comments: Medical Management Do you want consulting provider notified?: Yes Primary care physician: Tootie Milton [facility] Course: Hospital Course: The patient was evaluated preoperatively and found to have the diagnosis of Lumbar spondylosis with stenosis. They underwent appropriate preoperative care and were willing to undergo the intended procedure. They underwent a successful L2-L4 laminectomy were recovered appropriately and sent to the floor. While on the floor they worked with physical therapy, occupational therapy and nursing to enhance their recovery experience. Their pain was well controlled through their stay and they were started on appropriate medications, DVT ppx modalities, activity and dietary needs. Daily labs were monitored closely, and transfusions were only used when necessary. Medicine as well as other consulting services have made their input and have helped with our team approach and mu ltidisciplinary care. PT milestones have been met and passed and they have made the recommendation of Home for this patient and treating providers agree with this care path. The patient will be discharged home with appropriate medications, instructions and follow-up information and in stable condition. Patient Condition at Discharge: Good Plan - Discharge Summary Discharge Rx Participant: Yes New Discharge Prescriptions: New Celecoxib [CeleBREX] 200 mg PO BID #60 cap cefaDROXiL [Duricef] 500 mg PO Q12HR 3 Days #6 cap Cyclobenzaprine [Flexeril] 10 mg PO TID PRN #40 tab PRN Reason: Spasms Gabapentin 300 mg PO TID #90 cap HYDROcodone/APAP 10-325MG [[place] 10-325] 1 tab PO Q4HR PRN 7 Days #42 tab PRN Reason: Pain No Action Cholecalciferol (Vitamin D3) [Vitamin D3] 2,000 unit PO QAM Desvenlafaxine [Pristiq ER] 200 mg PO HS metFORMIN HCL 500 mg PO BID Glycopyrrolate 1 mg PO BID Ascorbic Acid [Vitamin C] 1,000 mg PO QAM buPROPion XL [Wellbutrin XL] 300 mg PO HS Cyclobenzaprine [Flexeril] 10 mg PO HS Valsartan 160 mg PO QAM Metoprolol Succinate [Metoprolol Succinate ER] 25 mg PO BID Discharge Medication List Cholecalciferol (Vitamin D3) [Vitamin D3] 2,000 unit PO QAM 05/16/18 [History] Ascorbic Acid [Vitamin C] 1,000 mg PO QAM 09/22/23 [History] Cyclobenzaprine [Flexeril] 10 mg PO HS 09/22/23 [History] Desvenlafaxine [Pristiq ER] 200 mg PO HS 09/22/23 [History] Glycopyrrolate 1 mg PO BID 09/22/23 [History] Metoprolol Succinate [Metoprolol Succinate ER] 25 mg PO BID 09/22/23 [History] Valsartan 160 mg PO QAM 09/22/23 [History] buPROPion XL [Wellbutrin XL] 300 mg PO HS 09/22/23 [History] metFORMIN HCL 500 mg PO BID 09/22/23 [History] Cyclobenzaprine [Flexeril] 10 mg PO TID PRN #40 tab 09/27/23 [Rx] Gabapentin 300 mg PO TID #90 cap 09/27/23 [Rx] HYDROcodone/APAP 10-325MG [[place] 10-325] 1 tab PO Q4HR PRN 7 Days #42 tab 09/27/23 [Rx] cefaDROXiL [Duricef] 500 mg PO Q12HR 3 Days #6 cap 09/27/23 [Rx] Celecoxib [CeleBREX] 200 mg PO BID #60 cap 09/28/23 [Rx] Follow up Appointment(s)/Referral(s): Tucker Moe DO [Doctor of Osteopathic Medicine] - 1 Week Patient Instructions/Handouts: *Surgery [facility] - Scopalamine Patch Instructions Activity/Diet/Wound Care/Special Instructions: Spine Discharge and Recovery Instructions Date of Surgery: 09/27/2023 Diagnosis: Lumbar stenosis Procedure: L2-L4 laminectomy Medications: See medication list All medication refills should be obtained through your primary care doctor or your clinic spine surgeon. Please discuss prescription refills at your follow up appointment. Do not call the hospital for medication refills. Activity: Encourage ambulation with assist of walker, Up and about 6-8x daily PT/OT daily work on balance, strength and mobility Up in chair with all meals Shower daily Brace: Use brace when up and about, do not wear in bed or shower Dressing: Leave your dressing in place for a total of 3 days post operatively. Then you may remove your dressing and leave open to air. Keep the area clean and if not able to keep area clean, then cover with sterile gauze and tape. Showering: You may shower 3 days after your procedure allowing soap and water to run over incision. Do not scrub. Do not soak. Blot dry. Follow up: Please confirm a follow up appointment with your surgeon 2 weeks post operatively. Please make an appointment to follow up with your PCP in 1-2 weeks after surgery for evaluation 3 phase, 3-week plan POST OP WEEKS 1-3 1. Lifting/carrying/pushing/pulling limited to less than 5 pounds. 2. Do not sit for longer than 15 minutes at one time. Get up and walk around. Prolonged sitting is NOT advised. If you lay down, see if you can tolerate laying down on you front (belly side) 3. Walk for periods of 15 minutes = 1 mile but no longer; do it multiple times times each day. 4. Ice your low back after activity. POST OP WEEKS 3-6 1. Lifting limited to less than 20 pounds. 2. Do not sit for longer than 30 minutes at a time. Frequently change positions. Use a sit-to stand workstation or take frequent breaks from sitting if you have returned to work. 3. Walk for 30 minutes each day. If possible, do these three or more times a day POST OP WEEKS 6+ At your 6-week appointment we will give you a physical therapy referral to focus on a core stabilization and strengthening program. You should also work on leg & buttock strengthening, hamstring & quadriceps stretching, and continue a low impact aerobic activity program such as swimming, walking, or riding a stationary bicycle. During the initial 6 weeks after your surgery, you are at the highest risk of re-injuring your spine. You should generally avoid BLTs (bending, lifting and twisting combination motions) and follow the above guidelines to reduce the chance of reinjury. You can anticipate post op appointments in our office at approximately 3 weeks and 6 weeks after your surgery. INCISION CARE: If your incision is not draining you do NOT need to cover it with a dressing. Keep your incision clean, dry and intact. In most cases, we apply skin glue, bonnie or sutures to the incision at the time of surgery. This will be like a crust or have the appearance of a scab and will fall off in time on its own. The stitches or bonnie need to be removed at 3 weeks post op appointment. You may begin to shower 3 days after surgery (this allows the glue to rossi well). However, please avoid scrubbing the incision site or peeling off any of the skin glue. This will ensure optimal healing of your incision. Also, during this time avoid soaking the incision area in water - this includes swimming pools, hot tubs or baths. No ointments, lotions or oils on the incision until your surgeon allows. Leave bonnie, sutures or glue in place. Neurological dysfunction that comes on suddenly can also be a sign of a stroke. Below some common symptoms of a stroke are listed: B - balance difficulty such as sudden onset walking or leaning to one side - NEW E - eye problem such as sudden double vision or trouble seeing on one side - NEW F - Facial weakness or numbness on one side - NEW A - Arm or leg weakness or numbness on one side - NEW S - Slurred speech or difficulty with word finding - NEW T - Time is BRAIN! Call 911 as soon as you recognize these symptoms Diet: Consume a regular diet rich in vegetables and lean protein such as chicken or fish. You should consume in a ratio of approximately 20% fats|40% carbohydrates|40%protein. Vegetables, sweet potatoes, brown rice or quinoa are examples of good carbohydrates. Chips, white bread, cookies and sweets/sugar are examples of bad carbohydrates. Limit your bad carbs, go wild with good carbs. "Life's Simple 7" Guidelines as per [place] [employer] These will help you reclaim your life after surgery and bricklayer helper in your recovery, keeping in mind your restrictions. (1) Get Active. Physical activity can help people lose weight, control high blood pressure and cholesterol, feel emotionally better, and sleep better. (2) Control Cholesterol. Avoid a diet high in saturated fat, trans fat, & cholesterol. Limit whole milk & cream, ice cream, butter, egg yolks, processed meats (like sausage and hot dogs), and fatty meats. Choose healthy foods that are low in saturated fat, trans fat and cholesterol which include: Fruits and vegetables, fiber rich grain products (like whole grain pasta and brown rice), lean meat such as chicken, fish, nuts, seeds, and legumes. (3) Eat Better. Eat small portions. Shop at the grocery with a list and do not stray from it. Tips for a healthy diet include: Limit sodium intake to less than 1500mg daily, avoid prepackaged, processed, and fast foods, choose a diet rich in fruits, vegetables, and whole grain, high fiber foods, and limit saturated & cholesterol in your diet. (4) Manage Blood Pressure. If you have high blood pressure, you should have a cuff at home so that you can check your blood pressure regularly. Be sure you have a good cuff. An arm one is generally better than a wrist one. Bring the cuff to a doctor's appointment to validate that the measurements that your cuff are taking are accurate. Take your blood pressure twice daily when you are sitting down and relaxing. Record the numbers in a log and bring this log with you to your doctors' appointments. (5) Lose Weight if your BMI is above 25. A healthy BMI is between 19-25. To calculate Your BMI, you may use a Standard BMI Calculator on the NIH BMI website: <www.nhlbi.nih.gov/guidelines/obesity/BMI/bmicalc.htm>. Weigh oneself daily. If you are overweight, set a goal to lose weight. A pound a week loss if needed is a good target. (6) Reduce Blood Sugar. Limit foods and liquids with "added sugars." (Added sugars include sucrose, fructose, glucose, maltose, dextrose, high fructose corn syrup, corn syrup, concentrated fruit juice and honey). (7) Stop Smoking. If you smoke, quitting smoking is one of the best things that you can do for your health. Smoking increases your risk of heart attack, stroke, and peripheral vascular disease, which is a build-up of plaque in your arteries. Please discard all the cigarettes and lighters in your house. Have a plan for what you will do when you have the urge to smoke. Direct and second- hand smoke shortens your life as well as the lives of your family, friends and others around you. For your health and the health of those around you, please consider quitting! Proper Bending Body Mechanics: Maintain a wide stance with one foot slightly in front of the other. Keep your back straight. Bend utilizing the strength in your hips and knees. Do not bend at the waist. Maintain the lifted object at your waist-level close to your body. Avoid lifting weight that causes immediately pain or pain anywhere in the body afterwards. Smoking/Nicotine If there was ever one thing that you could do to increase your overall health, decrease your risk of cardiovascular problems by about 39% the second you make the choice, it is to STOP SMOKING. Your body's most instant gratification is the second you stop smoking. We have all heard the studies, read the articles but it is true, smoking is extremely bad for your overall health, and moreover it is detrimental to your bone health. Nicotine, IN ANY FORM, kills bone cells, prevents your body from healing fractures, and significantly prolongs healing after surgery. In spine surgery specifically, it increases your risk of not healing your bones to create a fusion and increases your risk of having a revision surgery due to this up to 60%. I know it is hard. I know it feels impossible. But there are ways. Take control of your life. We are here to help you through it. And when you are ready, ask us and we can direct you to help if you desire. Use the START Plan to Quit Smoking (please visit the Helpguide.org website listed below for more information): S = Set a quit date. Choose a date within the next 2 weeks, so you have enough time to prepare without losing your motivation to quit. If you mainly smoke at work, quit on the weekend, so you have a few days to adjust to the change. T = Tell family, friends, and co-workers that you plan to quit. Let your friends and family in on your plan to quit smoking and tell them you need their support and encouragement to stop. Look for a quit anil who wants to stop smoking as well. You can help each other get through the rough times. A = Anticipate and plan for the challenges you'll face while quitting. Most people who begin smoking again do so within the first 3 months. You can help yourself make it through by preparing ahead for common challenges, such as nicotine withdrawal and cigarette cravings. R = Remove cigarettes and other tobacco products from your home, car, and work. Throw away all your cigarettes (no emergency pack!), lighters, ashtrays, and matches. Wash your clothes and freshen up anything that smells like smoke. Shampoo your car, clean your drapes and carpet, and steam your furniture. T = Talk to your doctor about getting help to quit. Your doctor can prescribe medication to help with withdrawal and suggest other alternatives. If you can't see a doctor, you can get many products over the counter at your local pharmacy or grocery store, including the nicotine patch, nicotine lozenges, and nicotine gum. Resources for Quitting Smoking: <https://www.[place].gov/documents/[facility]/Quit_Tobacco_Resources_for_patients_313 480_7.pdf> Supplementation: Take recommended dosages of Vitamin D and Calcium to help fortify your bones and help them to heal. See your health maintenance packet for dosages and recommended levels. DVT/VTE prophylaxis: You will be given compression stockings from the hospital. Wear these daily for the first two weeks after surgery. You may take them off at night. You may be prescribed a medication to help thin your blood. Take this as directed. If you are not prescribed this medication, early and frequent ambulation has been shown to be the best prophylaxis to deep vein thrombosis and sequelae related to this event. Discharge Disposition: HOME SELF-CARE
--- NOTE | 2023-09-28 11:05 | P.PN ---
Subjective Progress Note Date: 09/28/23 Principal diagnosis: 1. L5-S1 Grade I unstable spondylolisthesis with stenosis 2. Lumbar stenosis with radiculopathy 3. LE weakness 4. Low back pain Patient seen and examined this morning. Patient is sitting up right in chair at bedside. Patient reports that she notices improvement in the strength and mobility of her right lower extremity since procedure. She states her pain is controlled on current regimen. Patient states she has been up and about and ambulatory with an room with walker, she is tolerating activity well. Surgical incision to the lumbar spine, edges are well approximated with bonnie intact. Hemovac drain has been removed and new surgical dressing has been applied. Informed patient that physical therapy will be in to work with her today. Patient did express that she has a walker at home. No acute concerns. Objective - Vital Signs Vital signs: Vital Signs Temp 97.5 F L 09/28/23 07:18 Pulse 89 09/28/23 07:32 Resp 16 09/28/23 07:32 BP 125/81 09/28/23 07:18 Pulse Ox 94 L 09/28/23 07:18 FiO2 Intake & Output 09/27/23 09/28/23 09/28/23 18:59 06:59 18:59 Intake Total 1052 Output Total 150 Balance 902 Weight 101.4 kg 101.4 kg Intake: IV 1052 Output: Estimated Blood Loss 150 Other: # Voids 1 1 - Exam Physical Examination General: The patient is awake and alert, in no acute distress Skin: Skin is warm and dry with no obvious rashes or lesions. Surgical incision to the lumbar spine, edges are well approximated with bonnie intact. Hemovac drain has been removed. New surgical dressing applied. Eye: Pupils are equal, round and reactive to light, extra-ocular movements are intact; there is normal conjunctiva bilaterally. Neck: The neck is supple, there is no tenderness and ROM intact. Cardiovascular: There is a regular rate and rhythm. No murmur, rub or gallop is appreciated. Respiratory: Lungs are clear to auscultation, respirations are non-labored, breath sounds are equal. Gastrointestinal: Soft, non-distended, non-tender abdomen. Back: There is no tenderness to palpation in the midline, paralumbar, parathoracic or buttocks region. There is no obvious deformity . Musculoskeletal: ROM limited secondary to pain and stiffness from surgical procedure. Muscle strength in all major muscle groups of bilateral upper extremities 5/5, bilateral lower extremities 4/5. Neurological: CN 2-12 intact. There are no obvious motor or sensory deficits. Movement and coordination equal and intact. Sensory exam to light touch intact C5-T1 and intact from L2-S1. Reflexes 2/4 in bilateral upper and lower extremities. Negative Hoffmans, babinski, and clonus signs. Psychiatric: Cooperative, appropriate mood & affect, normal judgment. - Labs CBC & Chem 7: 09/28/23 04:20 09/28/23 04:20 Labs: Abnormal Lab Results - Last 24 Hours (Table) 09/27/23 09/27/23 09/28/23 Range/Units 12:52 19:28 04:20 Glucose 122 H (74-99) mg/dL POC Glucose (mg/dL) 113 H 168 H (70-110) mg/dL 09/28/23 Range/Units 05:42 Glucose (74-99) mg/dL POC Glucose (mg/dL) 117 H (70-110) mg/dL Assessment and Plan Assessment: Postop day 1: L2-L4 laminectomy and decompression 1. L5-S1 Grade I unstable spondylolisthesis with stenosis 2. Lumbar stenosis with radiculopathy 3. LE weakness 4. Low back pain Plan: -Appreciate network security consultant and team management. -Activity: Ambulate QID, OOB all meals, up and about, limit lifting bending twisting to less than 5 lbs. Use walker or cane if needed for stability. -Daily PT/OT, increase ambulation strength and balance. -Pain control: Adequate at this time -Meds: reviewed -GI ppx: senna, Miralax -DVT PPX: TEDS -Hygiene: Shower today. Maintain dressing clean and dry. Meticulous cleaning after BMs away from the incision site -Encourage IS 10x/hr -Dispo: Anticipate discharge home today *I reviewed and discussed this case with my attending Dr. Moe, whom has reviewed this chart and films and is in agreement with assessment and plan of care as outlined above. I have personally seen and examined the patient, performed the documentation and the assessment and plan as written. mNumber of minutes spent on the visit: 30m.
[2023-09-28 11:10] LABS: Glucose,Whole Blood 294 mg/dL (70-110)
--- NOTE | 2023-09-28 11:22 | FL ---
Fluoroscopy History: L2-L3 Laminectomy L2-3 LAMINECTOMY. FL TIME 8 SECONDS. DAP [id number]. [address] images [address]ACS[address] Dr Moe.
[2023-09-28] MEDS ORDERED: DEXTROSE 50% SYRINGE 50 ML IVP PRN ×2 (11:54)
[2023-09-28] MEDS: INSULIN ASPART (NovoLOG) 100 UNIT/ML VIAL SQ SCH (12:22)
[2023-09-28] MEDS ORDERED: CYCLOBENZAPRINE 10 MG TAB PO SCH (21:00)
[2023-09-28] MEDS ORDERED: buPROPion XL 300 MG TAB.ER.24H PO SCH (21:00)
[2023-09-28] MEDS ORDERED: DESVENLAFAXINE SUCCINATE 50 MG TAB.ER.24H PO SCH (21:00)
== END 2023-09-28 13:20 | disposition home or self-care (01) ==
LOC: OR 11:43 → 4SSUR 18:06 → OR 09-28 13:20
PROVIDERS: ATTEND Orthopaedic Surgery
DX: M48.061 Spinal stenosis, lumbar region without neurogenic claudication (principal); M51.26 Other intervertebral disc displacement, lumbar region; M47.26 Other spondylosis with radiculopathy, lumbar region; M51.16 Intervertebral disc disorders with radiculopathy, lumbar region; I10 Essential (primary) hypertension; E78.5 Hyperlipidemia, unspecified; E66.9 Obesity, unspecified; E11.9 Type 2 diabetes mellitus without complications; F17.210 Nicotine dependence, cigarettes, uncomplicated; Z68.25 Body mass index [BMI] 25.0-25.9, adult; Z79.84 Long term (current) use of oral hypoglycemic drugs; Z79.899 Other long term (current) drug therapy; Z86.73 Personal history of transient ischemic attack (TIA), and cerebral infarction without residual deficits; Z88.1 Allergy status to other antibiotic agents; Z88.5 Allergy status to narcotic agent; Z88.8 Allergy status to other drugs, medicaments and biological substances; Z90.49 Acquired absence of other specified parts of digestive tract; Z98.51 Tubal ligation status
CPT/HCPCS: 97161; 80048; 85025; 72100; 63047; 63048; J2250; J3370; J0330; J1200; J1580; J1100; J2710; J0690 ×3; J2405; J2001; J3010; J2704; J2371

== ENCOUNTER → 2024-01-04 | Outpatient (CLI) | payer BC ==
[2024-01-04 15:16] LABS: Basophils # (A) 0.05 X 10*3/uL (0.00-0.10); Basophils % (A) 0.4 %; Eosinophils # (A) 0.44 X 10*3/uL (0.04-0.35); Eosinophils % (A) 3.9 %; HCT 41.1 % (37.2-46.3); HGB 14.1 g/dL (12.0-15.0); Lymphocytes # (A) 1.83 X 10*3/uL (0.90-5.00); Lymphocytes % (A) 16.2 %; MCH 32.9 pg (27.0-32.0); MCHC 34.3 g/dL (32.0-37.0); MCV 95.8 FL (80.0-97.0); Mean Platelet Volume 10.4 FL (9.5-12.2); Monocytes # (A) 0.68 X 10*3/uL (0.20-1.00); NRBC Per 100 WBC 0 X 10*3/uL (0.00-0.01); Neutrophils # (A) 8.23 X 10*3/uL (1.80-7.70); Neutrophils % (A) 73.1 %; Platelet Count 281 X 10*3/uL (140-440); RBC 4.29 X 10*6/uL (4.10-5.20); RDW 12.5 % (11.5-14.5); WBC 11.28 X 10*3/uL (4.50-10.00)
[2024-01-04 15:41] LABS: INR 0.95 sec (0.93-1.11); Prothrombin Time 10.3 sec (9.9-11.9)
[2024-01-04 15:58] LABS: ALT 110 U/L (8-44); AST 106 U/L (13-35); Albumin 4.7 g/dL (3.8-4.9); Albumin/Globulin Ratio 2.35 Ratio (1.60-3.17); Alkaline Phosphatase 102 U/L (41-126); BUN/Creat Ratio 30.44 Ratio (12.00-20.00); Blood Urea Nitrogen 27.4 mg/dL (9.0-27.0); Carbon Dioxide 21.4 mmol/L (21.6-31.8); Chloride 103 mmol/L (96-109); Glucose 116 mg/dL (70-110); Potassium 4.1 mmol/L (3.5-5.5); Sodium 138 mmol/L (135-145); Total Bilirubin 0.3 mg/dL (0.3-1.2); Total Protein 6.7 g/dL (6.2-8.2)
[2024-01-04 18:24] LABS: Chol/HDL Ratio 5.57 Ratio; VLDL Calculation 108.4 mg/dL (5.00-40.00)
== END | disposition home or self-care (01) ==
LOC: LABPAT 10:09
PROVIDERS: ATTEND Orthopaedic Surgery
DX: Z01.812 Encounter for preprocedural laboratory examination (principal); E11.65 Type 2 diabetes mellitus with hyperglycemia; E55.9 Vitamin D deficiency, unspecified; M47.26 Other spondylosis with radiculopathy, lumbar region; M43.16 Spondylolisthesis, lumbar region; R79.9 Abnormal finding of blood chemistry, unspecified; Z22.322 Carrier or suspected carrier of Methicillin resistant Staphylococcus aureus
CPT/HCPCS: 36415; 80053; 80061; 82043; 82306; 82570; 83036; 83721; 84443; 85025; 85610; 86850; 86900; 86901; 87070

== ENCOUNTER 2024-01-10 07:20 | Inpatient (IN) | payer BC ==
[2024-01-06 14:35] VITALS: BMI 37.1
[2024-01-10] MEDS ORDERED: SCOPOLAMINE 1 MG/72 HR PATCH TRANSDERM ONE (08:43)
[2024-01-10] MEDS ORDERED: ONDANSETRON 4 MG/2 ML VIAL ONE (08:43)
[2024-01-10] MEDS ORDERED: GABAPENTIN 300 MG CAP ONE ×2 (08:43→22:03)
[2024-01-10] MEDS ORDERED: ACETAMINOPHEN TAB 500 MG TAB ONE (08:43)
[2024-01-10] MEDS ORDERED: diphenhydrAMINE 50 MG/ML 1 ML VIAL ONE (09:00)
[2024-01-10] MEDS ORDERED: ePHEDrine 50 MG/ML 1 ML VIAL ONE (09:00)
[2024-01-10] MEDS ORDERED: LIDOCAINE 1% INJ 10MG/ML (20 ML MDV) ONE (09:00)
[2024-01-10] MEDS ORDERED: ALBUMIN HUMAN 5% (25gm) 500 ML VIAL IVPB ONE (09:00)
[2024-01-10] MEDS ORDERED: ROCURONIUM 10 MG/ML (5 ML VIAL) IV ONE (09:00)
[2024-01-10] MEDS ORDERED: GLYCOPYRROLATE 0.2 MG/ML 2 ML VIAL ONE (09:00)
[2024-01-10] MEDS ORDERED: MIDAZOLAM 2 MG/2 ML VIAL ONE (09:00)
[2024-01-10] MEDS ORDERED: PROPOFOL 10 MG/ML 20 ML VIAL IV ONE (09:00)
[2024-01-10] MEDS ORDERED: PHENYLEPHRINE 10 MG/ML VIAL ONE (09:00)
[2024-01-10] MEDS ORDERED: SUCCINYLCHOLINE CHLORIDE 200 MG/10 ML VIAL IV ONE (09:00)
[2024-01-10] MEDS ORDERED: fentaNYL (PF) 50 MCG/ML 2 ML AMP ONE ×2 (09:00→13:05)
[2024-01-10] MEDS ORDERED: KETAMINE HCL IN 0.9 % NACL 50 MG/5 ML SYRINGE ONE (09:00)
[2024-01-10] MEDS ORDERED: LACTATED RINGERS 1,000 ML BAG ONE (09:05)
[2024-01-10] MEDS ORDERED: SODIUM CHLORIDE 0.9% 50 ML BAG IV ONE (09:05)
[2024-01-10] MEDS ORDERED: ceFAZolin 10 GM VIAL IVPB ONE (09:05)
[2024-01-10] MEDS ORDERED: BUPIVACAINE (PF) 0.25% 30 ML VIAL ONE (09:18)
[2024-01-10] MEDS ORDERED: TRANEXAMIC 1,000 MG/100ML-NACL PREMIX BAG ONE ×2 (09:18→11:15)
[2024-01-10] MEDS ORDERED: THROMBIN (BOVINE) 5,000 UNIT VIAL ONE (09:18)
[2024-01-10] MEDS ORDERED: LIDOCAINE 2%-EPI 1:100,000 20 ML VIAL ONE (09:18)
[2024-01-10] MEDS ORDERED: MORPHINE SULFATE 4 MG/ML SYRINGE ONE ×2 (12:20→12:36)
[2024-01-10] MEDS ORDERED: MEPERIDINE 50 MG/ML SYRINGE ONE (12:50)
[2024-01-10 13:44] LABS: Glucose,Whole Blood 114 mg/dL (70-110)
[2024-01-10] MEDS ORDERED: oxyCODONE-APAP 5-325MG 1 EACH TAB ONE ×2 (15:25)
[2024-01-10 16:43] LABS: Glucose,Whole Blood 95 mg/dL (70-110)
[2024-01-10] MEDS ORDERED: CYCLOBENZAPRINE 10 MG TAB ONE (17:20)
[2024-01-10] MEDS ORDERED: ACETAMINOPHEN TAB 325 MG TAB ONE ×4 (18:07→23:14)
[2024-01-10] MEDS ORDERED: KETOROLAC 15 MG/ML 1 ML VIAL ONE ×4 (18:07→23:14)
[2024-01-10 21:03] LABS: Glucose,Whole Blood 136 mg/dL (70-110)
[2024-01-10] MEDS ORDERED: buPROPion XL 300 MG TAB.ER.24H PO ONE (23:26)
[2024-01-10] MEDS ORDERED: ceFAZolin 1,000 MG VIAL ONE (23:26)
[2024-01-10] MEDS ORDERED: SODIUM CHLORIDE 0.9% 50 ML BAG ONE (23:26)
[2024-01-10] MEDS ORDERED: INSULIN ASPART (NovoLOG) 100 UNIT/ML VIAL SQ ONE (23:26)
[2024-01-11] MEDS ORDERED: ACETAMINOPHEN TAB 325 MG TAB ONE ×4 (06:24→11:55)
[2024-01-11] MEDS ORDERED: KETOROLAC 15 MG/ML 1 ML VIAL ONE ×4 (06:24→11:55)
[2024-01-11 06:28] LABS: Glucose,Whole Blood 91 mg/dL (70-110)
[2024-01-11] MEDS ORDERED: SENNOSIDES 8.6 MG TAB ONE (08:51)
[2024-01-11] MEDS ORDERED: oxyCODONE-APAP 5-325MG 1 EACH TAB ONE ×2 (08:51)
[2024-01-11] MEDS ORDERED: GABAPENTIN 300 MG CAP ONE ×2 (08:56→15:19)
[2024-01-11] MEDS ORDERED: ONDANSETRON 4 MG/2 ML VIAL ONE ×2 (09:02)
[2024-01-11 11:15] LABS: Glucose,Whole Blood 284 mg/dL (70-110)
[2024-01-11] MEDS ORDERED: CYCLOBENZAPRINE 10 MG TAB ONE (11:55)
[2024-01-11] MEDS ORDERED: INSULIN ASPART (NovoLOG) 100 UNIT/ML VIAL SQ ONE (11:58)
[2024-01-11] MEDS ORDERED: HYDROcodone/APAP 10-325MG 1 EACH TAB ONE ×2 (15:23)
--- NOTE | 2024-03-06 18:22 | FL ---
EXAMINATION TYPE: FL guidance operating room, XR lumbar spine 2 or 3V COMPARISON: Pre Operative Images if available both CT/MRI or plain film CLINICAL INDICATION: Female, 58 years old with history of DDD LUMBAR FUSION; TECHNIQUE: FL guidance operating room, XR lumbar spine 2 or 3V, multiple fluoroscopic images provided for procedure. Total fluoroscopy time: 1.02 minutes Total submitted images to PACS: 5 DAP: 1016.84 cGycm2 FINDINGS: Fluoroscopic images during internal fixation/arthroplasty demonstrate fixation hardware in appropriat e position. Hardware appears intact. No immediate complication identified. IMPRESSION: 1. No evidence for intraoperative complication. 2. Please see the operative/procedural note for further details. [facility], , 03/06/2024 6:19 PM
--- NOTE | 2024-04-03 07:52 | P.OP ---
Date of Procedure: 01/10/24 Description of Procedure: [facility] SP[facility] SURGERY OPERATIVE NOTE PATIENT: MORENO MAGAÑA Age/Sex: 58, FEMALE : 1965 DATE OF SERVICE: 01/10/24 PREOPERATIVE DIAGNOSIS: * L5-S1 SPONDYLOLISTHESIS GRADE I UNSTABLE * L5-S1 SPONDYLOSIS WITH STENOSIS * LE RADICULOPATHY * LE WEAKNESS * LOW BACK PAIN POST OPERATIVE DIAGNOSIS: * L5-S1 SPONDYLOLISTHESIS GRADE I UNSTABLE * L5-S1 SPONDYLOSIS WITH STENOSIS * LE RADICULOPATHY * LE WEAKNESS * LOW BACK PAIN PROCEDURE: 1. L5-S1 POSTEROLATERAL AND INTERBODY FUSION (33106) 2. L5-S1 INSTRUMENTATION (63185) 3. L5-S1 LAMINOFORAMINOTOMY AND DECOMPRESSION (95839) 4. INSERTION OF BIOMECHANICAL DEVICE (01899) 5. USE OF [employer] NAVIGATION (34727) USE OF IONM, ALL SCREWS TESTING > 20mA USE OF IO MICROSCOPE IMPLANTS: -ANA PAULA EVEREST RODS AND SCREWS -GLOBUS SABLE CAGE 9-16, 8 DEG, 10 MM -MAGNATOS, ARTHROCELL, ALLOCELL, AUTOGRAFT ANESTHESIA: GETA SURGEON: PAMELA BUNCH ASSEMBLER ARRANGER: SILVIA HUYNH EBL: 100 CC URINE: 250 CC FLUIDS: 1100 CC COMPLICATIONS: NONE DISPOSITION: STABLE TO PACU INDICATIONS FOR PROCEDURE: 58 yo female with a history of low back pain, b/l LE radiculopathy, paresthesias and weakness as well as difficulty with ambulation and recent decompression of L2-4 presents today for her L5-S1 minimally invasive posterolateral and interbody fusion. She continues to have significant back pain related to her L5-S1 as well as S1 radicular and paresthesia symptoms. She also has a hx of DM which is a partial cause of her likely neuropathic type pain. She did get better in her thighs from her recent decompression surgery, but she still has residual sx in her feet that she would like addressed. We discussed options for treatment and she has elected for L5-S1 minimally invasive posterolateral and interbody fusion. Risks and benefits discussed as outlined in risk review. She is willing to assume these risks and all the risks of surgery. She is willing to proceed. OPERATIVE NARRATIVE: L5-S1 MIS TLIF LIBRA The patient was seen and examined in the preoperative area. All preoperative protocols were followed. Informed consent was obtained, risks and benefits of the procedure were discussed at length. Risks including bleeding infection damage to the surrounding tissue and risk of reoperation were discussed with the patient. Risk of anesthesia up to and including was discussed with the patient. These are outlined in the risk review. They were willing to accept these risks and all the risks of surgery. The patient was given a weight-based dose of antibiotics in the form of 2 g Ancef. The patient was seen and evaluated by the anesthesia team who deemed them fit for surgery. The site was marked, the patient was willing to proceed with the procedure. The patient was transferred to the operative suite by the Department of anesthesia. They were then drifted off to sleep by the department anesthesia and GETA was performed. The patient tolerated this well. Rockwell catheter was placed by nursing staff, a-traumatically. Once confirmation of lines and ventilation the patient was transferred to a prone Delon table very carefully. All bony prominences including wrists, elbows, axilla, chest, hips, and thighs, and feet were padded very well. Special attention was paid to the genitalia, and these were padded accordingly. SCDs were placed on bilateral lower ext remities and were connected. Arms were well padded and placed on arm boards up and out in the 90/90 position. Once in position, again we confirmed good ventilation capabilities and that lines were running appropriately. The patients Lumbar spine was then exposed. 1010s were placed outlining the incision site. Standard alcohol was used to clean the incision site and allowed to dry. C-arm was used to needle localize the pedicles at L5-S1 and bio-tonie the patient and confirm level for incision which was marked with a skin marker. Operative briefing was performed with all teams and everyone in agreement to proceed. The patient was then prepped and draped in a normal sterile fashion. Timeout was then performed, and all parties agreed with the procedure to be performed. Skin nicks were made over the PSIS on the right side and pins placed for the [employer] Navigation tracker. This was secured and then a 3D Ziehm spin was registered. Once registered it was tested and confirmed to be accurate. We then targeted pedicles b/l at L5 and S1 using navigated Jamshidi and drill guide. Wires were then placed in their void and confirmed to be in good position on AP and Lateral. Contralateral right side screws were then placed over wires and tested and they all tested above 20 mA. Attention was then turned to interbody fusion at L5-S1. Tubular retractor system was placed at the interspace of L5-S1 using a biplanar c arm. Once in position and dilated up to 26mm tube it was locked to the bed and confirmed in good position. Microscope was then brought in for visualization. Limited myomectomy was performed and laminectomy, complete facetectomy and foraminotomy performed at L5-S1 using high speed isaac and Kerrison rongeur. The ligamentum was removed and the dural sac decompressed. Exiting and traversing roots visualized and decompressed. Neural elements were then protected, and disc space accessed with an osteotome. Sequential shaving then done under lateral imaging and complete discectomy performed using janene, pituitary and curette. Once good bleeding endplates accomplished and good height taoism with trials, a combination of autograft, allograft and synthetic placed anterior in the disc space. The cage was then selected and impacted into place under lateral imaging. The cage was then expanded restoring height, lordosis and alignment. The cage was backfilled with bone graft through a funnel. The fire alarm inspector was removed and the area inspected. Good cage placement, stable cage and no injuries. Area was irrigated copiously, and meticulous hemostasis achieved. The tubular retractor was then removed under direct visualization. Screws were then selected and placed over the previously placed wires on the ipsilateral side. This was done in the fashion described above. Screws were then tested, and all tested above 20 mA. Shells were then placed on the tabs. Phi length was then measured, and rods selected. They were then placed through the MIS tabs, subfascial. These were then locked into place with set screws and final tightened. Phi holders removed and images taken showing good placement of rods, good lordosis and taoism of height. Tabs were broken off. Wounds were then copiously irrigated with NSS. Maxie used for TP decortication and mixture of MagnatOs, allograft and autograft packed posterolateral. Fascia was then closed with 0 Vicryl. Deep subq closed with 0 Vicryl. Superficial subq closed with 2-0 Vicryl and skin with bonnie. Wound edges approximated very well. Wound was then cleaned with alcohol and dried. Wounds dressed in Optifoam dressings. The patient was then transferred off the table back to their hospital bed a- traumatically. They were extubated by the department of anesthesia. They were then transferred to PACU in stable condition having tolerated the procedure with no complications. Signed and authenticated by: DO Jovanna Rapp [facility] [address] [address] This document is confidential, intended only for the named recipient(s) and may contain information that is privileged or exempt from disclosure under applicable law. If you are not the intended recipient(s), you are notified that the dissemination, distribution or copying of this information is strictly prohibited. If you received this message in error, please notify the sender then delete this message.
== END 2024-01-11 16:14 | disposition home health service (06) | DRG 455 ==
LOC: OR 07:20 → 4SSUR 08:20
PROVIDERS: ADMIT Orthopaedic Surgery; ATTEND Orthopaedic Surgery
PROC: 0SG3071 Fusion of Lumbosacral Joint with Autologous Tissue Substitute, Posterior Approach, Posterior Column, Open Approach (ICD-10-PCS; 2024-01-10)
PROC: 0ST40ZZ Resection of Lumbosacral Disc, Open Approach (ICD-10-PCS; 2024-01-10)
PROC: 01NB0ZZ Release Lumbar Nerve, Open Approach (ICD-10-PCS; 2024-01-10)
PROC: 01NR0ZZ Release Sacral Nerve, Open Approach (ICD-10-PCS; 2024-01-10)
PROC: 00NY0ZZ Release Lumbar Spinal Cord, Open Approach (ICD-10-PCS; 2024-01-10)
PROC: 4A11X4G Monitoring of Peripheral Nervous Electrical Activity, Intraoperative, External Approach (ICD-10-PCS; 2024-01-10)
PROC: 0SG30AJ Fusion of Lumbosacral Joint with Interbody Fusion Device, Posterior Approach, Anterior Column, Open Approach (ICD-10-PCS; principal; 2024-01-10 10:45)
DX: M43.17 Spondylolisthesis, lumbosacral region (principal); M47.27 Other spondylosis with radiculopathy, lumbosacral region; E11.22 Type 2 diabetes mellitus with diabetic chronic kidney disease; M19.90 Unspecified osteoarthritis, unspecified site; N18.2 Chronic kidney disease, stage 2 (mild); M43.16 Spondylolisthesis, lumbar region; I12.9 Hypertensive chronic kidney disease with stage 1 through stage 4 chronic kidney disease, or unspecified chronic kidney disease; E78.5 Hyperlipidemia, unspecified; F32.A Depression, unspecified; Z79.84 Long term (current) use of oral hypoglycemic drugs; Z90.49 Acquired absence of other specified parts of digestive tract; M48.07 Spinal stenosis, lumbosacral region; Z88.5 Allergy status to narcotic agent; Z88.1 Allergy status to other antibiotic agents
CPT/HCPCS: 72100; 80048; 85025; 85610; 86850; 86900; 86901

== ENCOUNTER 2024-06-05 16:06 | Emergency (ER) | payer BC ==
[2024-06-05 16:25] VITALS: TEMP 98.2
--- NOTE | 2024-06-05 17:12 | ED ---
General Adult HPI - General Chief complaint: Dizziness Stated complaint: high blood pressure Time Seen by Provider: 06/05/24 16:29 Source: patient, RN notes reviewed Mode of arrival: ambulatory Limitations: no limitations - History of Present Illness Initial comments: Patient is a 58-year-old female present to the emergency department with concerns for her blood pressure. Patient does have history of chronic hypertension. Medication valartan has been increased around 6 weeks ago. Now 80 mg twice a day. Patient states blood pressure has been high the last 2 days. Patient occasionally feels lightheaded. Patient occasionally has irregular heart rate on her pulse ox monitor. Patient admits to feeling anxious. - Related Data Home Medications Medication Instructions Recorded Confirmed Cholecalciferol (Vitamin D3) 2,000 unit PO QAM 05/16/18 01/06/24 [Vitamin D3] Ascorbic Acid [Vitamin C] 1,000 mg PO QAM 09/22/23 01/06/24 Cyclobenzaprine [Flexeril] 10 mg PO HS 09/22/23 01/06/24 Desvenlafaxine [Pristiq ER] 200 mg PO HS 09/22/23 01/06/24 Glycopyrrolate 1 mg PO BID 09/22/23 01/06/24 Metoprolol Succinate [Metoprolol 25 mg PO BID 09/22/23 01/06/24 Succinate ER] Valsartan 160 mg PO QAM 09/22/23 01/06/24 buPROPion XL [Wellbutrin XL] 300 mg PO HS 09/22/23 01/06/24 metFORMIN HCL 500 mg PO BID 09/22/23 01/06/24 Loratadine [Claritin] 10 mg PO DAILY 01/06/24 01/06/24 Melatonin [Melatonin Tr] 20 mg PO HS 01/06/24 01/06/24 Ubrogepant [Ubrelvy] 100 mg PO DIRECTED PRN 01/06/24 01/06/24 Previous Rx's Medication Instructions Recorded Cyclobenzaprine [Flexeril] 10 mg PO TID PRN #40 tab 09/27/23 Gabapentin 300 mg PO TID #90 cap 09/27/23 HYDROcodone/APAP 10-325MG [[place] 1 tab PO Q4HR PRN 7 Days #42 tab 09/27/23 10-325] Allergies Allergy/AdvReac Type Severity Reaction Status Date / Time cephalexin [From Keflex] AdvReac Diarrhea Verified 06/05/24 16:20 clindamycin AdvReac Severe Verified 06/05/24 16:20 Migraine codeine AdvReac Nausea & Verified 06/05/24 16:20 Vomiting hydromorphone [From Dilaudid] AdvReac Nausea Verified 06/05/24 16:20 monosodium glutamate [MSG] AdvReac Triggers Verified 06/05/24 16:20 Migraines prochlorperazine AdvReac Nausea & Verified 06/05/24 16:20 [From Compazine] Vomiting raspberry AdvReac COLD SORES Verified 06/05/24 16:20 strawberry AdvReac COLD SORES Verified 06/05/24 16:20 sumatriptan [From Imitrex] AdvReac CAUSED Verified 06/05/24 16:20 VERY MINOR TIA tramadol AdvReac Nausea Verified 06/05/24 16:20 turmeric AdvReac Triggers Verified 06/05/24 16:20 Migraines Review of Systems ROS Statement: Those systems with pertinent positive or pertinent negative responses have been documented in the HPI. ROS Other: All systems not noted in ROS Statement are negative. Constitutional: Denies: fever Eyes: Denies: eye pain ENT: Denies: ear pain Cardiovascular: Reports: as per HPI. Denies: chest pain Endocrine: Denies: fatigue Gastrointestinal: Denies: abdominal pain Neurological: Reports: as per HPI. Denies: headache, weakness, confusion Past Medical History Past Medical History: CVA/TIA, Diabetes Mellitus, Hyperlipidemia, Hypertension, Neurologic Disorder Additional Past Medical History / Comment(s): VERY SLIGHT TIA. CHRONIC SINUSITIS. BLEEDING AFTER EXERCISE. MIGRAINES History of Any Multi-Drug Resistant Organisms: MRSA Date of last positivie culture/infection: 01/2018 MDRO Source:: UNDER NOSE ON FACE Past Surgical History: Cholecystectomy, Orthopedic Surgery, Tonsillectomy, Tubal Ligation Additional Past Surgical History / Comment(s): RT WRIST AND ELBOW SX. COLONOSCOPY/EGD Past Anesthesia/Blood Transfusion Reactions: Motion Sickness, Postoperative Nausea & Vomiting (PONV) Additional Past Anesthesia/Blood Transfusion Reaction / Comment(s): No hx blood transfusion. Past Psychological History: No Psychological Hx Reported Smoking Status: Never smoker Past Alcohol Use History: None Reported Past Drug Use History: None Reported - Past Family History Mother Family Medical History: No Reported History General Exam Limitations: no limitations General appearance: alert, in no apparent distress Head exam: Present: normocephalic Eye exam: Present: normal appearance, PERRL, EOMI Neck exam: Present: normal inspection Respiratory exam: Present: normal lung sounds bilaterally Cardiovascular Exam: Present: regular rate, normal rhythm, normal heart sounds. Absent: irregular rhythm GI/Abdominal exam: Present: soft. Absent: tenderness Extremities exam: Present: normal inspection Neurological exam: Present: alert, oriented X3, CN II-XII intact. Absent: motor sensory deficit Expanded Neurological exam: Present: protecting the airway Speech: Present: fluid speech Cranial nerves: EOM's Intact: Normal Motor strength exam: RUE: 5, LUE: 5, RLE: 5, LLE: 5 Eye Response: (4) open spontaneously Motor Response: (6) obeys commands Verbal Response: (5) oriented Psychiatric exam: Present: normal affect, normal mood Skin exam: Present: normal color Course Vital Signs 06/05/24 06/05/24 06/05/24 16:20 16:42 19:08 Temperature 98.2 F Pulse Rate 84 72 90 Respiratory 18 19 17 Rate Blood Pressure 152/86 166/83 163/88 O2 Sat by Pulse 99 100 100 Oximetry EKG Findings - EKG Results: EKG: interpreted by VINCENT (LVH criteria), sinus rhythm, normal axis, normal ST/T Medical Decision Making - Medical Decision Making Was pt. sent in by a medical professional or institution (, PA, MEDICAL RECORDS ANALYST, urgent care, hospital, or long term...) When possible be specific @ -No Did you speak to anyone other than the patient for history (EMS, parent, family, police, friend...)? What history was obtained from this source @ -No Did you review nursing and triage notes (agree or disagree)? Why? @ -I reviewed and agree with nursing and triage notes Were old charts reviewed (outside hosp., previous admission, EMS record, old EKG, old radiological studies, urgent care reports/EKG's, long term records)? Report findings @ -No old charts were reviewed Differential Diagnosis (chest pain, altered mental status, abdominal pain women, abdominal pain men, vaginal bleeding, weakness, fever, dyspnea, syncope, headache, dizziness, GI bleed, back pain, seizure, CVA, palpatations, mental health, musculoskeletal)? @ -Differential Dizziness: Benign paroxysmal positional Vertigo, Meniere's disease, otitis media, acoustic neuroma, vertebrobasilar insufficiency, cerebellar stroke, encephalitis, hypovolemic, arrhythmia, coronary artery syndrome, anemia, this is not meant to be an all-inclusive list EKG interpreted by me (3pts min.). @ -As above X-rays interpreted by me (1pt min.). @ -None done CT interpreted by me (1pt min.). @ -None done U/S interpreted by me (1pt. min.). @ -None done What testing was considered but not performed or refused? (CT, X-rays, U/S, la bs)? Why? @ -None What meds were considered but not given or refused? Why? @ -None Did you discuss the management of the patient with other professionals (professionals i.e. , PA, MEDICAL RECORDS ANALYST, lab, RT, psych nurse, director of social services, scouts, teacher, aoc operations intelligence officer, shoe parts caser)? Give summary @ -No Was smoking cessation discussed for >3mins.? @ -No Was critical care preformed (if so, how long)? @ -No Were there social determinants of health that impacted care today? How? (Homelessness, low income, unemployed, alcoholism, drug addiction, transportation, low edu. Level, literacy, decrease access to med. care, residential, rehab)? @ -No Was there de-escalation of care discussed even if they declined (Discuss DNR or withdrawal of care, Hospice)? DNR status @ -No What co-morbidities impacted this encounter? (DM, HTN, Smoking, COPD, CAD, Cancer, CVA, ARF, Chemo, Hep., AIDS, mental health diagnosis, sleep apnea, morbid obesity)? @ -History of hypertension Was patient admitted / discharged? Hospital course, mention meds given and route, prescriptions, significant lab abnormalities, going to OR and other pertinent info. @ -Patient presents with concerns for hypertension, otherwise symptom-free at this time. Blood pressure and evaluation unremarkable. Patient updated. Patient will be discharged with close follow-up with primary care physician. Undiagnosed new problem with uncertain prognosis? @ -No Drug Therapy requiring intensive monitoring for toxicity (Heparin, Nitro, Insulin, Cardizem)? @ -No Were any procedures done? @ -No Diagnosis/symptom? @ -Hypertension Acute, or Chronic, or Acute on Chronic? @ -Acute on chronic Uncomplicated (without systemic symptoms) or Complicated (systemic symptoms)? @ -Default Side effects of treatment? @ -No Exacerbation, Progression, or Severe Exacerbation? @ -No Poses a threat to life or bodily function? How? (Chest pain, USA, VT, pneumonia, PE, COPD, DKA, ARF, appy, cholecystitis, CVA, Diverticulitis, Homicidal, Suicidal, threat to staff... and all critical care pts) @ -No - Lab Data Result diagrams: 06/05/24 17:48 06/05/24 17:48 Lab Results 06/05/24 06/05/24 Range/Units 17:48 17:48 WBC 9.9 (3.8-10.6) k/uL RBC 4.85 (3.80-5.40) m/uL Hgb 16.3 H (11.4-16.0) gm/dL Hct 45.4 (34.0-46.0) % MCV 93.6 (80.0-100.0) fL MCH 33.7 (25.0-35.0) pg MCHC 35.9 (31.0-37.0) g/dL RDW 12.7 (11.5-15.5) % Plt Count 207 (150-450) k/uL MPV 9.5 Neutrophils % 61 % Lymphocytes % 25 % Monocytes % 5 % Eosinophils % 7 % Basophils % 0 % Neutrophils # 6.0 (1.3-7.7) k/uL Lymphocytes # 2.5 (1.0-4.8) k/uL Monocytes # 0.5 (0-1.0) k/uL Eosinophils # 0.7 (0-0.7) k/uL Basophils # 0.0 (0-0.2) k/uL Sodium 138 (137-145) mmol/L Potassium 4.2 (3.5-5.1) mmol/L Chloride 107 (98-107) mmol/L Carbon Dioxide 16 L (22-30) mmol/L Anion Gap 15 mmol/L BUN 18 H (7-17) mg/dL Creatinine 0.99 (0.52-1.04) mg/dL Est GFR (CKD-EPI)AfAm 73 (>60 ml/min/1.73 sqM) Est GFR (CKD-EPI)NonAf 63 (>60 ml/min/1.73 sqM) Glucose 81 (74-99) mg/dL Calcium 10.4 H (8.4-10.2) mg/dL Magnesium 1.9 (1.6-2.3) mg/dL Total Bilirubin 0.8 (0.2-1.3) mg/dL AST 60 H (14-36) U/L ALT 67 H (4-34) U/L Alkaline Phosphatase 109 (38-126) U/L Total Protein 7.9 (6.3-8.2) g/dL Albumin 5.3 H (3.5-5.0) g/dL Disposition Clinical Impression: Hypertension Disposition: HOME SELF-CARE Condition: Stable Instructions (If sedation given, give patient instructions): Dizziness (ED), Hypertension (ED) Additional Instructions: Please do follow-up with your primary care physician in the next couple of days for recheck. Return for uncontrolled blood pressure, dizziness, weakness, confusion, worsening or changing symptoms or other concerns. Is patient prescribed a controlled substance at d/c from ED?: No Referrals: Tootie Rose MD [Primary Care Provider] - 1-2 days Time of Disposition: 19:28
[2024-06-05 17:57] LABS: Basophils % (A) 0 %; Eosinophils # (A) 0.7 k/uL (0-0.7); Eosinophils % (A) 7 %; HCT 45.4 % (34.0-46.0); HGB 16.3 gm/dL (11.4-16.0); Lymphocytes # (A) 2.5 k/uL (1.0-4.8); Lymphocytes % (A) 25 %; MCH 33.7 pg (25.0-35.0); MCHC 35.9 g/dL (31.0-37.0); MCV 93.6 fL (80.0-100.0); Mean Platelet Volume 9.5; Monocytes # (A) 0.5 k/uL (0-1.0); Monocytes % (A) 5 %; Neutrophils % (A) 61 %; Platelet Count 207 k/uL (150-450); RBC 4.85 m/uL (3.80-5.40); RDW 12.7 % (11.5-15.5); WBC 9.9 k/uL (3.8-10.6)
[2024-06-05 18:08] LABS: ALT 67 U/L (4-34); AST 60 U/L (14-36); African American GFR (CKD) 73 (>60 ml/min/1.73 sqM); Albumin 5.3 g/dL (3.5-5.0); Alkaline Phosphatase 109 U/L (38-126); Anion Gap 15 mmol/L; Blood Urea Nitrogen 18 mg/dL (7-17); Calcium 10.4 mg/dL (8.4-10.2); Carbon Dioxide 16 mmol/L (22-30); Chloride 107 mmol/L (98-107); Glucose 81 mg/dL (74-99); Magnesium 1.9 mg/dL (1.6-2.3); Non-African American GFR(CKD) 63 (>60 ml/min/1.73 sqM); Potassium 4.2 mmol/L (3.5-5.1); Sodium 138 mmol/L (137-145); Total Bilirubin 0.8 mg/dL (0.2-1.3); Total Protein 7.9 g/dL (6.3-8.2)
[2024-06-05 19:09] VITALS: BP 163/88; PULSE 90; RESP 17
== END 2024-06-05 19:34 | disposition home or self-care (01) ==
LOC: EC 16:06
DX: I10 Essential (primary) hypertension (principal); Z88.1 Allergy status to other antibiotic agents; Z88.5 Allergy status to narcotic agent; Z88.8 Allergy status to other drugs, medicaments and biological substances; Z86.73 Personal history of transient ischemic attack (TIA), and cerebral infarction without residual deficits; Z79.899 Other long term (current) drug therapy
CPT/HCPCS: 36415; 80053; 83735; 85025; 93005; 99284